=== PATIENT | male | born 1930 | race Caucasian/White ===

== ENCOUNTER 2016-12-21 17:32 | Inpatient (IN) ==
[2017-01-03] MEDS ORDERED: BISACODYL 10 MG SUPPOSITORY RECTALLY PRN (05:00)
[2017-01-03] MEDS ORDERED: TRAMADOL 50 MG TABLET PO PRN (05:00)
[2017-01-03] MEDS ORDERED: PROPAFENONE 150 MG TABLET PO SCH (06:00)
[2017-01-03] MEDS: GLUCOSAMINE/CHONDROITIN 500 MG/400 MG CAPSULE PO SCH (08:15)
[2017-01-03] MEDS: ASPIRIN *EC* 81 MG TABLET PO SCH ×2 (08:15→21:18)
[2017-01-03] MEDS: CLOPIDOGREL 75 MG TABLET PO SCH (08:15)
[2017-01-03] MEDS: TAMSULOSIN 0.4 MG CAPSULE PO SCH (08:16)
[2017-01-03] MEDS: SENNA + DOCUSATE TABLET PO SCH ×2 (08:16→21:17)
[2017-01-03] MEDS: DIGOXIN 250 MCG TABLET PO SCH (08:16)
[2017-01-03] MEDS: MAGNESIUM OXIDE 400 MG TABLET PO SCH (08:17)
[2017-01-03] MEDS: POLYETHYL GLYCOL 3350 17gm PACKET PO SCH (08:20)
[2017-01-03] MEDS: CARVEDILOL 3.125 MG TABLET PO SCH ×2 (08:20→18:11)
[2017-01-03] MEDS: OMEGA-3 ACID ESTERS 1 GM CAPSULE PO SCH (08:38)
[2017-01-03] MEDS: HYDROCODONE/APAP 7.5 MG/325 MG TABLET PO PRN (10:37)
[2017-01-03] MEDS: PANTOPRAZOLE 40 MG TABLET PO SCH ×2 (10:40→21:17)
[2017-01-03] MEDS ORDERED: Pharmacy Consult for Fall Risk XX PRN (11:20)
[2017-01-03] MEDS: PROPAFENONE 150 MG TABLET PO SCH ×2 (18:51→22:18)
[2017-01-03] MEDS ORDERED: ATORVASTATIN 40 MG TABLET PO SCH (22:00)
[2017-01-04] MEDS: HYDROCODONE/APAP 7.5 MG/325 MG TABLET PO PRN ×3 (01:53→12:13)
[2017-01-04] MEDS: PROPAFENONE 150 MG TABLET PO SCH (06:35)
[2017-01-04] MEDS: MAGNESIUM OXIDE 400 MG TABLET PO SCH (08:39)
[2017-01-04] MEDS: GLUCOSAMINE/CHONDROITIN 500 MG/400 MG CAPSULE PO SCH (08:39)
[2017-01-04] MEDS: PANTOPRAZOLE 40 MG TABLET PO SCH (08:39)
[2017-01-04] MEDS: CLOPIDOGREL 75 MG TABLET PO SCH (08:39)
[2017-01-04] MEDS: CARVEDILOL 3.125 MG TABLET PO SCH (08:39)
[2017-01-04] MEDS: ASPIRIN *EC* 81 MG TABLET PO SCH (08:39)
[2017-01-04] MEDS: TAMSULOSIN 0.4 MG CAPSULE PO SCH (08:39)
[2017-01-04] MEDS: SENNA + DOCUSATE TABLET PO SCH (08:40)
[2017-01-04] MEDS: DIGOXIN 250 MCG TABLET PO SCH (08:40)
[2017-01-04] MEDS: OMEGA-3 ACID ESTERS 1 GM CAPSULE PO SCH (08:40)
[2017-01-04] MEDS: POLYETHYL GLYCOL 3350 17gm PACKET PO SCH (09:48)
--- NOTE | 2017-01-04 13:53 | Discharge Summary ---
Discharge Plan - Med Rec/Dispo Referrals/Follow Up: Cr Meredith MD [Family Provider] - (01/15/17 at 8:00 am for Hosp. follow-up. [facility] [phone]) Prescriptions: New Hydrocodone/APAP 7.5/325 [[place] 7.5/325] 1 - 2 tab PO Q4H PRN #60 PRN Reason: Pain Tramadol [Ultram] 50 mg PO Q4H PRN #30 PRN Reason: pain Digoxin [Lanoxin] 250 mcg PO DAILY #30 Propafenone [Rythmol] 225 mg PO 0600,1400,2200 #30 Continue Aspirin 81 mg PO BID Norman 3/Dha/Epa/Other Om3/D3 1,000 mg PO DAILY Tamsulosin [Flomax] 0.4 mg PO DAILY Magnesium Oxide 1 tab PO DAILY #30 tab Pantoprazole Sodium [Protonix] 40 mg PO BID #0 tab Carvedilol 3.125 mg PO BIDWM Clopidogrel Bisulfate [Clopidogrel] 75 mg PO DAILY Osteo Bi-Flex Tablet 1 tab PO DAILY Atorvastatin [Lipitor] 1 tab PO HS #0 tab Glucosamine/D3/Boswellia Gavi [Osteo Bi-Flex Tablet] 1 tab PO DAILY #0 Norman-3 Fatty Acids/Fish Oil [Norman 3 1,000 mg Softgel] 1,000 mg PO DAILY #0 No Action Digoxin 125 mcg PO DAILY #0 Atorvastatin Calcium 40 mg PO HS Hydrocodone/APAP 5/325 [[place] 5/325] 2 tab PO Q4H PRN PRN Reason: Pain Pantoprazole Sodium [Protonix] 40 mg PO BID Aspirin [Aspir 81] 1 tab PO BID #30 tab Carvedilol [Coreg] 3.125 mg PO BIDWM #0 tab Clopidogrel Bisulfate [Plavix] 1 tab PO DAILY #0 tab Hydrocodone/Acetaminophen ([place] 5-325 Tablet) 2 tab PO Q4HPRN #0 tab Tamsulosin HCl [Flomax] 0.4 mg PO DAILY #0 cap RYTHMOL 150 mg PO Q8H #0 Magnesium Oxide 1 tab PO DAILY Tramadol [Ultram] 50 mg PO Q4H PRN PRN Reason: Pain Tramadol HCl 50 mg PO Q4H PRN #0 tab PRN Reason: PRN ORDERS - Disposition 01 Discharged Home, Self-Care
--- NOTE | 2017-01-04 14:14 | Progress Note ---
Subjective: Mr Pearce is seen this afternoon while resting in bed. He is alert, oriented and pleasant. Reports continues to have intermittent mild knee pain, however, overall is well-controlled with medications. No further episodes of palpitations or other concerning symptoms. Appetite is good. Bowels moving regularly. He is excited that he will be going home later today. Objective Vital signs: Temp Pulse Resp BP Pulse Ox 98.6 F 78 20 118/67 99 01/04/17 08:00 01/04/17 08:40 01/04/17 08:00 01/03/17 20:00 01/04/17 08:00 Weight: 71.5 kg - Constitutional Present: no acute distress - Routine HEENT Exam Eye: Present: EOMI, PERRL - Routine Cardiovascular Exam Present: RRR, S1, S2 - Routine Abdominal Exam Present: soft, normoactive bowel sounds - Routine Extremities Exam Present: full ROM Comments: Right knee, postoperative discomfort - Routine Back/Spine/Pelvis Exam Back/Spine: Present: full ROM - Routine Skin Exam Present: intact - Routine Neurological Exam Present: alert, oriented X3, CN II-XII intact - Routine Psychiatric Exam Present: normal affect, normal thought process, cooperative Results - Labs CBC & Chem 7: 12/31/16 14:27 12/31/16 14:27 Assessment and Plan (1) Status post right knee surgery Current visit: Yes Status: Chronic (2) Coronary artery disease Current visit: Yes Status: Chronic (3) Atrial fibrillation Current visit: Yes Status: Resolved (4) Aortic stenosis Current visit: Yes Status: Chronic (5) Hypercholesterolemia Current visit: Yes Status: Chronic (6) Hypertension Current visit: Yes Status: Chronic (7) BPH (benign prostatic hyperplasia) Current visit: Yes Status: Chronic (8) GERD (gastroesophageal reflux disease) Current visit: Yes Status: Chronic (9) Postoperative anemia Current visit: Yes Status: Acute DVT Prophylaxis: SCD's Assessment and Plan: 01/04/17 Bert is doing well today. He is tolerating therapy with minimal discomfort. He is pleased. He is planning for discharge later today. No further episodes of atrial fibrillation during his hospitalization. He will be discharged on increased dose of digoxin and Rythmol Encourage continued use of tramadol and Percocet as needed for pain control. She will utilize outpatient physical therapy for ongoing postoperative rehabilitation. Scheduled follow-up with orthopedic as well as primary care doctor, Dr. Meredith Sepsis Assessment - Evaluation Sepsis screening result: No Definite Risk - Focused Exam Vital Signs Temp Pulse Resp Pulse Ox 01/04/17 08:40 78 01/04/17 08:00 98.6 F 75 20 99 01/04/17 06:35 69 Hospital Course Summary Disclaimer: The visit summary below is not to be considered part of the above Progress Note.
--- NOTE | 2017-01-15 10:04 | Discharge Summary ---
Discharge Information Date of admission: 12/21/16 17:33 Attending Physician: Neftali De La Rosa MD Primary care physician: Cr Meredith MD Consults: 01/02/17 14:24 Case Management Consult [CONS] Routine Reason For Exam: discharge planning 01/02/17 15:17 Physician Consult [CONS] Routine Consulting Provider: Olman Herrera Reason For Exam: medical management Ordering Provider has Notified Study Hall Supervisor: No - Discharge Diagnosis (1) Status post right knee surgery Status: Chronic (2) Coronary artery disease Status: Chronic (3) Atrial fibrillation Status: Resolved (4) Aortic stenosis Status: Chronic (5) Hypercholesterolemia Status: Chronic (6) Hypertension Status: Chronic (7) BPH (benign prostatic hyperplasia) Status: Chronic (8) GERD (gastroesophageal reflux disease) Status: Chronic (9) Postoperative anemia Status: Acute - Laboratory Labs: 12/31/16 14:27 12/31/16 14:27 History of Present Illness HPI: Pt seen after admit as outpatient from PT across from hospital. He is an 86 yo very pleasant gentleman who has been unable to manage adl's at all since d/c 2 dys post knee replacement. He has been lying in bed without ability to get himself to shower or toilet. Unable to get food. Lying in his own waste. He rates pain as4-7 at rest, 10/10 with any attempt to move. Has had oral narcotics, which were unable to treat pain after d/c. He was at outpatient PT when therapist called my developer programmer analyst and pleaded for admission. We were able to justify obvious need for admission based on lack of pain control and concern over very brittle afib with risks of cva/complication. Hospital Course Hospital course: Mr. Pearce is a 86 year old male Patient admitted status post knee surgery. With myopathy and unstable medical situation. Atrial fibrillation was controlled by increasing her digoxin and Rythmol. Skull therapy and occupational therapy worked with the patient to increase strength, stamina and stability. Safety issues were discussed. Patient has significant improvement and FIM scores during admission. Discharged home with outpatient care follow-up. DVT Prophylaxis: SCD's Discharge Plan - Med Rec/Dispo Referrals/Follow Up: Betito Morris [Other] Cr Meredith MD [Family Provider] - (01/15/17 at 8:00 am for Hosp. follow-up. Via [facility] [phone]) Ann-Marie Instructions: Pain Management After Surgery (DC), Joint Replacement Surgery (DC) Prescriptions: New Hydrocodone/APAP 7.5/325 [[place] 7.5/325] 1 - 2 tab PO Q4H PRN #60 PRN Reason: Pain Tramadol [Ultram] 50 mg PO Q4H PRN #30 PRN Reason: pain Digoxin [Lanoxin] 250 mcg PO DAILY #30 Propafenone [Rythmol] 225 mg PO 0600,1400,2200 #30 Continue Aspirin 81 mg PO BID Springer 3/Dha/Epa/Other Om3/D3 1,000 mg PO DAILY Tamsulosin [Flomax] 0.4 mg PO DAILY Magnesium Oxide 1 tab PO DAILY #30 tab Pantoprazole Sodium [Protonix] 40 mg PO BID #0 tab Carvedilol 3.125 mg PO BIDWM Clopidogrel Bisulfate [Clopidogrel] 75 mg PO DAILY Osteo Bi-Flex Tablet 1 tab PO DAILY Atorvastatin [Lipitor] 1 tab PO HS #0 tab Glucosamine/D3/Boswellia Gavi [Osteo Bi-Flex Tablet] 1 tab PO DAILY #0 Springer-3 Fatty Acids/Fish Oil [Springer 3 1,000 mg Softgel] 1,000 mg PO DAILY #0 No Action Digoxin 125 mcg PO DAILY #0 Atorvastatin Calcium 40 mg PO HS Hydrocodone/APAP 5/325 [[place] 5/325] 2 tab PO Q4H PRN PRN Reason: Pain Pantoprazole Sodium [Protonix] 40 mg PO BID Aspirin [Aspir 81] 1 tab PO BID #30 tab Carvedilol [Coreg] 3.125 mg PO BIDWM #0 tab Clopidogrel Bisulfate [Plavix] 1 tab PO DAILY #0 tab Hydrocodone/Acetaminophen ([place] 5-325 Tablet) 2 tab PO Q4HPRN #0 tab Tamsulosin HCl [Flomax] 0.4 mg PO DAILY #0 cap RYTHMOL 150 mg PO Q8H #0 Magnesium Oxide 1 tab PO DAILY Tramadol [Ultram] 50 mg PO Q4H PRN PRN Reason: Pain Tramadol HCl 50 mg PO Q4H PRN #0 tab PRN Reason: PRN ORDERS - Disposition 01 Discharged Home, Self-Care
== END 2017-01-04 15:30 | disposition home or self-care (01) | DRG 560 ==
PROVIDERS: ADMIT Family Medicine; ATTEND Family Medicine

== ENCOUNTER 2017-06-16 11:31 | Inpatient (IN) ==
--- OUTSIDE RECORDS SUMMARY | 2017-06-16 13:59 | External Medical Summary | Referral Summary ---
:1930 Author Organization [facility] Address [address] [place] [address] [place] [address] Care Team Providers Name Role Phone Cr Meredith V Primary Care Physician Encounter VC Date(s): 03/23/15 - 03/23/15 [facility], [address] [place] [phone] Discharge Diagnosis: Mild aortic stenosis Discharge Diagnosis: Paroxysmal a-fib Discharge Disposition: 01-Home or Self Care Attending Physician: Alexis Rogers MD Admitting Physician: Alexis Rogers MD Referring Physician: Cr Meredith MD Vital Signs Most recent to oldest [Reference Range]: 1 Peripheral Pulse Rate [60-100 bpm] 64 bpm (03/23/15 2:19 PM) Blood Pressure [90-140/60-90 mmHg] 104/70 mmHg (03/23/15 2:19 PM) Problem List Condition Effective Dates Status Health Status Informant STEMI (ST elevation myocardial Active infarction)(Confirmed) Acute pain(Confirmed) Active Allergic rhinitis/hay Active fever(Confirmed) Allergies(Confirmed) Resolved Aortic stenosis(Confirmed) Active At risk for infection(Confirmed)1 Active At risk of pressure sore(Confirmed) Active Atrial fibrillation(Confirmed) Resolved Adenomatous polyp(Confirmed) Active Cellulitis(Confirmed) Active Eustachian tube 05/28/14 Active dysfunction(Confirmed) Essential hypertension(Confirmed) Active GERD(Confirmed) Resolved Hx of ST elevation myocardial Active infarction(Confirmed) High cholesterol(Confirmed) Active Hyperlipidemia(Confirmed) Active Hyperplastic polyp of Active intestine(Confirmed) Impacted cerumen(Confirmed) Active Ear infections(Confirmed) Active Knowledge deficit(Confirmed)2 Active Osteoarthritis(Confirmed)3 Resolved Paroxysmal atrial 1996 Active fibrillation(Confirmed)4 Polyp colon(Confirmed)5 Resolved Prostatism(Confirmed) Active Tissue perfusion Active alteration(Confirmed)6 1Problem added automatically by system based on initiation of At Risk for Infection in Nutrition Planof Meit8Ygbrapa added automatically by system based on initiation of Knowledge Deficit Plan of Vvlh6vwnpq, thumb VLP6sybunvlbkeac [id number], AND JONHPCMOFNSX9Aemltxm added automatically by system based on initiation of Tissue Perfusion Cerebral Plan of Care Allergies, Adverse Reactions, Alerts No Known Allergies Medications arginine 500 mg, Oral, Daily, 0 Refill(s) Start Date: 01/08/14 Status: Orderedaspirin 81 mg, Oral, Daily, 0 Refill(s) Start Date: 01/03/14 Status: OrderedCo-Q10 Oral, 0 Refill(s) Start Date: 01/08/14 Status: OrderedCoreg 3.125 mg oral tablet 3.125 mg 1 tabs, Oral, BIDWM, 0 Refill(s) Start Date: 06/22/15 Status: Ordereddigoxin 125 mcg (0.125 mg) oral tablet 125 mcg 1 tabs, Oral, Daily, 0 Refill(s) Start Date: 06/24/15 Status: OrderedFish Oil 1,000 mg, Oral, Daily, 0 Refill(s) Start Date: 01/08/14 Status: OrderedLipitor 40 mg oral tablet 40 mg 1 tabs, Oral, Daily, 0 Refill(s) Start Date: 06/22/15 Status: Orderedmagnesium oxide 400 mg, Oral, Daily, 0 Refill(s) Start Date: 01/08/14 Status: Orderednitroglycerin 0.4 mg sublingual tablet 0.4 mg 1 tabs, SubLingual, q5min, Angina/Chest Pain, 0 Refill(s) Start Date: 06/22/15 Status: OrderedOsteo Bi-Flex one daily, 0 Refill(s) Start Date: 01/08/14 Status: OrderedPlavix 75 mg oral tablet 75 mg 1 tabs, Oral, Daily, 0 Refill(s) Start Date: 06/22/15 Status: OrderedProtonix 40 mg oral delayed release tablet 40 mg 1 tabs, Oral, BID, 0 Refill(s) Start Date: 06/22/15 Status: OrderedRythmol 150 mg oral tablet See Instructions, TAKE 1 TABLET EVERY 8 HOURS, # 270 tabs, 3 Refill(s), eRx: [facility], TAKE 1 TABLET EVERY 8 HOURS Start Date: 03/30/15 Status: Orderedtamsulosin 0.4 mg oral capsule 1 caps, Oral, Daily, # 90 caps, 3 Refill(s), Pharmacy: [facility], 1 caps Oral Daily Start Date: 11/09/14 Status: Ordered Results No data available for this section Immunizations Vaccine Date Refusal Reason influenza virus vaccine, inactivated1 07/12/14 influenza virus vaccine, live 06/19/13 influenza virus vaccine, live 06/25/12 pneumococcal 13-valent conjugate vaccine 07/05/15 pneumococcal 23-polyvalent vaccine 06/01/05 tetanus-diphth toxoids (Td) adult/adol 02/02/09 1Result Comment: [07/12/2014] SEE SCANNED NOTE Procedures Procedure Date Related Diagnosis Body Site Catheterization Left Heart with Coronary 06/18/15 Angiography (Left)1 Catheterization Heart Coronary Intervention2 06/17/15 Catheterization Left Heart with Coronary 06/17/15 Angiography3 S/P colonoscopy4 2005 Bilateral ptosis surgery5 2004 S/P colonoscopy6 2004 Colonoscopy7 2003 Bilateral inguinal hernia repair8 1989 Circumcision Eye lid surgeries H/O esophagogastroduodenoscopy Paroxysmal a-fib Right knee surgery x29 Tonsillectomy Vasectomy 1auto-populated from documented surgical yshj7moqu-yrmwpqwep from documented surgical pyhy2atrd-koncpmict from documented surgical bdyv1pvadrxgacvkk xstwk6OSZL KUUV7evxwodawear [id number] [id number] KNEE SURGERY Social History Social History Type Response Smoking Status Former smoker; Started at age: 30; Stopped at age: 54 Assessment and Plan Extracted from: Title: Office Visit Note Author: Alexis Rogers MD Date: 03/24/15 Assessment/Plan 1.Paroxysmal a-fib 2.Mild aortic stenosis Discussion: From the standpoint of his mild aortic stenosis and paroxysmal atrial fibrillation, he appears to be getting along very well. We left him on the same medications. We advised him to call us if he has any symptoms of chest pain or shortness of breath or syncope etc. We also discussed cardiac risk for joint replacement surgery. We advised him that with any operation it's important for the patient and the surgeon to reconcile if the operation is necessary and if it is likely to be successful and if there are likely to be complications and what the long-term outlook of the operation may be. From the standpoint of cardiac risk, joint replacement surgery is usually a medium risk operation and therefore, the patient is clinically stable, it is usually reasonable to proceed. I reminded the patient and his that operative intervention is sometimes provocative of atrial fibrillation. He is to see me in a year and to call if he has any difficulty.
--- OUTSIDE RECORDS SUMMARY | 2017-06-16 13:59 | External Medical Summary | Referral Summary ---
:1930 Author [facility] Address [address] [place] [address] [place] [address] Care Team Providers Name Role Phone Cr Meredith V Primary Care Physician Encounter VC Date(s): 06/25/16 - 06/25/16 [facility] [place] [phone] Discharge Disposition: 01-Home or Self Care Attending Physician: Cr Meredith MD Admitting Physician: Cr Meredith MD Vital Signs No data available for this section Problem List Condition Effective Dates Status Health Status Informant STEMI (ST elevation myocardial Active infarction)(Confirmed) Acute pain(Confirmed) Active Allergic rhinitis/hay Active fever(Confirmed) Allergies(Confirmed) Resolved Aortic stenosis(Confirmed) Active Mild CAD(Confirmed) Active At risk for infection(Confirmed)1 Active At [...] At Risk for Infection in Nutrition Planof Xcqz2Tnnmetu added automatically by system based on initiation of Knowledge Deficit Plan of Peov4rdfmo, thumb XDX1udnqbxwtopzt [id number], AND LCODCSWZNTRP3Jrueduf added automatically by system based on initiation [...] HOURS, # 270 tabs, 3 Refill(s), eRx: [facility], TAKE 1 TABLET EVERY 8 HOURS Start Date: 03/30/15 Status: Orderedtamsulosin 0.4 mg oral capsule See Instructions, TAKE 1 CAPSULE EVERY DAY, # 90 caps, 3 Refill(s), eRx: [facility], TAKE 1 CAPSULE EVERY DAY Start Date: 10/25/15 Status: Ordered Results No data available for this section Immunizations Vaccine Date Refusal Reason influenza virus vaccine, inactivated 06/25/16 influenza virus vaccine, inactivated1 07/12/14 influenza virus [...] x29 Tonsillectomy Vasectomy 1auto-populated from documented surgical tuoj5ktfu-ofignglfo from documented surgical jlwm8amzz-spvcrocxc from documented surgical yuiz9rdwnjftytuma lsdwp2BOKN BFIA7lbjkvkaxefz ggcsf4hfcos3CZLGSNMBEY PUIBNFWJ5EDCEB KNEE SURGERY Social History Social History Type Response Smoking Status Former smoker; Started at age: 30; Stopped at age: 54 Assessment and Plan No data available for this section
--- OUTSIDE RECORDS SUMMARY | 2017-06-16 13:59 | External Medical Summary | Referral Summary ---
:1930 Author Organization [facility] Address [address] [place] [address] [place] [address] Care Team Providers Name Role Phone Cr Meredith V Primary Care Physician Encounter VC Date(s): 06/07/15 - 06/07/15 [facility] [place] [phone] [place] Discharge Diagnosis: Primary osteoarthritis of left knee Discharge Diagnosis: Paroxysmal atrial fibrillation Discharge Diagnosis: H/O gastroesophageal reflux (GERD) Discharge Diagnosis: Encounter for preprocedural cardiovascular examination Discharge Disposition: 01-Home or Self Care Attending Physician: Cr Meredith MD Admitting Physician: Cr Meredith MD Vital Signs Most recent to oldest [Reference Range]: 1 Temperature Tympanic [36.6-38.1 degC] 36.1 degC *LOW* (06/07/15 7:54 AM) Peripheral Pulse Rate [60-100 bpm] 60 bpm (06/07/15 7:54 AM) Blood Pressure [90-140/60-90 mmHg] 130/70 mmHg (06/07/15 7:54 AM) Problem List Condition Effective Dates Status Health Status Informant Allergic rhinitis/hay Active fever(Confirmed) Allergies(Confirmed) Resolved Atrial fibrillation(Confirmed) Resolved Eustachian tube 05/28/14 Active dysfunction(Confirmed) Adenomatous polyp(Confirmed) Active GERD(Confirmed) Resolved High cholesterol(Confirmed) Active Hyperlipidemia(Confirmed) Active Hyperplastic polyp of Active intestine(Confirmed) Impacted cerumen(Confirmed) Active Ear infections(Confirmed) Active Osteoarthritis(Confirmed)1 Resolved Paroxysmal atrial 1996 Active fibrillation(Confirmed)2 Polyp colon(Confirmed)3 Resolved Prostatism(Confirmed) Active 1knees, thumb VZR2zntgigkipxmb [id number], AND HYPERPLASTIC Allergies, Adverse Reactions, Alerts No Known Allergies Medications arginine Oral, 0 Refill(s) Start Date: 01/08/14 Status: Orderedaspirin 81 mg, Oral, Daily, 0 Refill(s) Start Date: 01/03/14 Status: OrderedCo-Q10 Oral, 0 Refill(s) Start Date: 01/08/14 Status: Ordereddigoxin 125 mcg (0.125 mg) oral tablet 1 tabs, Oral, Daily, # 90 tabs, 3 Refill(s), Pharmacy: [facility], 1 tabs Oral Daily Start Date: 11/24/14 Status: OrderedFish Oil Oral, 0 Refill(s) Start Date: 01/08/14 Status: Orderedlovastatin 40 mg oral tablet 1 1/2 tabs, Oral, Daily, # 135 tabs, 3 Refill(s), Pharmacy: [facility], 1 1/2 tabs Oral Daily Start Date: 11/24/14 Status: Orderedmagnesium oxide Oral, 0 Refill(s) Start Date: 01/08/14 Status: Orderedomeprazole 20 mg oral delayed release capsule 1 caps, Oral, Daily, # 90 caps, 0 Refill(s), Pharmacy: [id number], 1 caps Oral Daily Start Date: 11/11/14 Status: OrderedOsteo Bi-Flex 0 Refill(s) Start Date: 01/08/14 Status: OrderedRythmol 150 mg oral tablet See Instructions, TAKE 1 TABLET EVERY 8 HOURS, # 270 tabs, 3 Refill(s), eRx: [facility], TAKE 1 TABLET EVERY 8 HOURS Start Date: 03/30/15 Status: Orderedtamsulosin 0.4 mg oral capsule 1 caps, Oral, Daily, # 90 caps, 3 Refill(s), Pharmacy: [facility], 1 caps Oral Daily Start Date: 11/09/14 Status: Ordered Results Hematology Most recent to oldest [Reference Range]: 1 WBC [4.8-10.8 10*3/uL] 4.6 10*3/uL *LOW* (06/07/15 8:50 AM) RBC [4.60-6.20] 4.74 (06/07/15 8:50 AM) Hgb [14.0-18.0 gm/dL] 13.9 gm/dL *LOW* (06/07/15 8:50 AM) Hct [42.0-52.0 %] 42.3 % (06/07/15 8:50 AM) MCV [82.0-99.0 fL] 89.2 fL (06/07/15 8:50 AM) MCH [27.0-32.0 pg] 29.3 pg (06/07/15 8:50 AM) MCHC [32.0-36.0 gm/dL] 32.9 gm/dL (06/07/15 8:50 AM) RDW [11.5-14.5 %] 13.9 % (06/07/15 8:50 AM) Platelet [150-400 10*3/uL] 259 10*3/uL (06/07/15 8:50 AM) MPV [8.8-14.8 fL] 10.0 fL (06/07/15 8:50 AM) Immature Granulocytes [0.0-1.0 %] 0.2 % (06/07/15 8:50 AM) Neutrophils [51-75 %] 66 % (06/07/15 8:50 AM) Lymphocytes [20-46 %] 21 % (06/07/15 8:50 AM) Monocytes [4-11 %] 9 % (06/07/15 8:50 AM) Eosinophils [0-4 %] 3 % (06/07/15 8:50 AM) Basophils [0-2 %] 0 % (06/07/15 8:50 AM) Neutro Absolute [1.90-7.00 10*3] 3.02 10*3 (06/07/15 8:50 AM) Lymph Absolute [0.80-3.30 10*3] 0.97 10*3 (06/07/15 8:50 AM) Bracken Absolute [0.30-1.00 10*3] 0.43 10*3 (06/07/15 8:50 AM) Eos Absolute [0.00-0.50 10*3] 0.13 10*3 (06/07/15 8:50 AM) Baso Absolute [0.00-0.20 10*3] 0.02 10*3 (06/07/15 8:50 AM) Coagulation Most recent to oldest [Reference Range]: 1 PT Venous (06/07/15 8:50 AM) INR [0.8-1.2] 0.9 1 (06/07/15 8:50 AM) 1Result Comment: Normal (no anticoagulant): 0.8 - 1.2 Units Routine Therapeutic Range: 2.0 - 3.0 Units High Risk Therapeutic Range: 2.5 - 3.5 UnitsChemistry Most recent to oldest [Reference Range]: 1 Sodium Lvl [135-144 mEq/L] 140 mEq/L (06/07/15 8:50 AM) Potassium Lvl [3.5-5.2 mEq/L] 4.2 mEq/L (06/07/15 8:50 AM) Chloride [99-111 mEq/L] 107 mEq/L (06/07/15 8:50 AM) CO2 [23-31 mEq/L] 28 mEq/L (06/07/15 8:50 AM) AGAP [3-20] 5 (06/07/15 8:50 AM) BUN [8-26 mg/dL] 21 mg/dL (06/07/15 8:50 AM) Glucose Lvl [70-99 mg/dL] 101 mg/dL *HI* (06/07/15 8:50 AM) Creatinine Lvl [0.72-1.25 mg/dL] 1.04 mg/dL (06/07/15 8:50 AM) eGFR [>60 mL/min] >60 mL/min 1 (06/07/15 8:50 AM) Calcium Lvl [8.9-10.5 mg/dL] 9.1 mg/dL (06/07/15 8:50 AM) Albumin Lvl [3.4-4.8 gm/dL] 3.6 gm/dL (06/07/15 8:50 AM) Total Protein [6.2-8.1 gm/dL] 6.2 gm/dL (06/07/15 8:50 AM) Globulin [1.8-4.0 gm/dL] 2.6 gm/dL (06/07/15 8:50 AM) ALT [0-55 U/L] 19 U/L (06/07/15 8:50 AM) AST [5-34 U/L] 26 U/L (06/07/15 8:50 AM) Alk Phos [40-150 U/L] 54 U/L (06/07/15 8:50 AM) Bili Total [0.2-1.2 mg/dL] 0.6 mg/dL (06/07/15 8:50 AM) 1Result Comment: Multiply eGFR results by 1.21 for race. Immunizations Vaccine Date Refusal Reason influenza virus vaccine, inactivated1 07/12/14 influenza virus vaccine, live 06/19/13 influenza virus vaccine, live 06/25/12 pneumococcal 23-polyvalent vaccine 06/01/05 tetanus-diphth toxoids (Td) adult/adol 02/02/09 1Result Comment: [07/12/2014] SEE SCANNED NOTE Procedures Procedure Date Related Diagnosis Body Site S/P colonoscopy1 2005 Bilateral ptosis surgery2 2004 S/P colonoscopy3 2004 Colonoscopy4 2003 Bilateral inguinal hernia repair5 1989 Circumcision Eye lid surgeries H/O esophagogastroduodenoscopy Paroxysmal a-fib Right knee surgery x26 Tonsillectomy Vasectomy 1hyperplastic [id number] HCWP4hlwljevvtdu [id number] [id number] KNEE SURGERY Social History Social History Type Response Smoking Status Former smoker; Started at age: 30; Stopped at age: 54 Assessment and Plan Extracted from: Title: Preoperative assessment Author: Cr Meredith MD Date: 06/07/15 Assessment/Plan Encounter for preprocedural cardiovascular examination H/O gastroesophageal reflux (GERD) Paroxysmal atrial fibrillation Pre-op exam Primary osteoarthritis of left knee Overall he seems to be stable. Will obtain labs and EKG and chest x-ray today. Recommendations as described above -these were discussed with him and his . Copy of the dictation to be sent to Dr. Lucas and to Dr. Rogers.
--- OUTSIDE RECORDS SUMMARY | 2017-06-16 13:59 | External Medical Summary | Referral Summary ---
:1930 Author Organization [facility] [place], [facility] Address [address] [place] [address] DAV[place] Kitchen [address] Care Team Providers Name Role Phone Cr Meredith V Primary Care Physician Encounter VC Date(s): 03/23/15 - 03/23/15 [facility] [place] [address] [place] [address] [place] [phone] [place] Discharge Diagnosis: Mild [...] Polyp colon(Confirmed)3 Resolved Prostatism(Confirmed) Active 1knees, thumb CDL2luqvzjbndwno [id number], AND HYPERPLASTIC Allergies, Adverse Reactions, Alerts No Known Allergies Medications arginine Oral, 0 Refill(s) Start Date: 01/08/14 Status: Orderedaspirin 81 mg, Oral, Daily, 0 Refill(s) Start Date: 01/03/14 Status: OrderedCo-Q10 Oral, 0 Refill(s) Start Date: 01/08/14 Status: Ordereddigoxin 125 mcg (0.125 mg) oral tablet 1 tabs, Oral, Daily, # 90 tabs, 3 Refill(s), Pharmacy: [facility], 1 tabs Oral Daily Start Date: 11/24/14 Status: OrderedFish Oil Oral, 0 Refill(s) Start Date: 01/08/14 Status: Orderedlovastatin 40 mg oral tablet 1 1/2 tabs, Oral, Daily, # 135 tabs, 3 Refill(s), Pharmacy: [facility], 1 1/2 tabs Oral Daily Start Date: 11/24/14 Status: Orderedmagnesium oxide Oral, 0 Refill(s) Start Date: 01/08/14 Status: Orderedomeprazole 20 mg oral delayed release capsule 1 caps, Oral, Daily, # 90 caps, 0 Refill(s), Pharmacy: [facility], 1 caps Oral Daily Start Date: 11/11/14 Status: OrderedOsteo Bi-Flex 0 Refill(s) Start Date: 01/08/14 Status: OrderedRythmol 150 mg oral tablet See Instructions, TAKE 1 TABLET EVERY 8 HOURS, # 270 tabs, 3 Refill(s), eRx: [facility], TAKE 1 TABLET EVERY 8 HOURS Start Date: 03/30/15 Status: Orderedtamsulosin 0.4 mg oral capsule 1 caps, Oral, Daily, # 90 caps, 3 Refill(s), Pharmacy: [facility], 1 caps Oral Daily Start Date: [...] Right knee surgery x26 Tonsillectomy Vasectomy 1hyperplastic idjvd6ZXPS IUJG3aywtodkivdz fclix9qppwx7WPEWPONDKH ZFUJNAQV0RSNEH KNEE SURGERY Social History Social History Type [...]
--- OUTSIDE RECORDS SUMMARY | 2017-06-16 13:59 | External Medical Summary | Referral Summary ---
:1930 Author Organization [facility] Address [address] [place] [address] DAV[place] Kitchen [address] Care Team Providers Name Role Phone Cr Meredith V Primary Care Physician Encounter VC Date(s): 03/23/15 - 03/23/15 [facility] [place] [address] [place] [address] [place] [phone] [place] Discharge Diagnosis: Mild [...] Polyp colon(Confirmed)3 Resolved Prostatism(Confirmed) Active 1knees, thumb KOA0vhgwuiwfvuhv [id number], AND HYPERPLASTIC Allergies, Adverse Reactions, Alerts No Known Allergies Medications arginine Oral, 0 Refill(s) Start Date: 01/08/14 Status: Orderedaspirin 81 mg, Oral, Daily, 0 Refill(s) Start Date: 01/03/14 Status: OrderedCo-Q10 Oral, 0 Refill(s) Start Date: 01/08/14 Status: Ordereddigoxin 125 mcg (0.125 mg) oral tablet 1 tabs, Oral, Daily, # 90 tabs, 3 Refill(s), Pharmacy: [facility], 1 tabs Oral Daily Start Date: 11/24/14 Status: OrderedFish Oil Oral, 0 Refill(s) Start Date: 01/08/14 Status: Orderedlovastatin 40 mg oral tablet 1 1/2 tabs, Oral, Daily, # 135 tabs, 3 Refill(s), Pharmacy: [facility], 1 1/2 tabs Oral Daily Start Date: 11/24/14 Status: Orderedmagnesium oxide Oral, 0 Refill(s) Start Date: 01/08/14 Status: Orderedomeprazole 20 mg oral delayed release capsule 1 caps, Oral, Daily, # 90 caps, 0 Refill(s), Pharmacy: [facility], 1 caps Oral Daily Start Date: 11/11/14 Status: OrderedOsteo Bi-Flex 0 Refill(s) Start Date: 01/08/14 Status: OrderedRythmol 150 mg oral tablet See Instructions, TAKE 1 TABLET EVERY 8 HOURS, # 270 tabs, 3 Refill(s), eRx: [facility], TAKE 1 TABLET EVERY 8 HOURS Start Date: 03/30/15 Status: Orderedtamsulosin 0.4 mg oral capsule 1 caps, Oral, Daily, # 90 caps, 3 Refill(s), Pharmacy: [facility], 1 caps Oral Daily Start Date: [...] Right knee surgery x26 Tonsillectomy Vasectomy 1hyperplastic ruulc2PWAG OEZN6ftnrftnrtuc rxzhl1ipdhp5GNNHAKTYAE THYTOIOP6BFTTU KNEE SURGERY Social History Social History Type [...]
--- OUTSIDE RECORDS SUMMARY | 2017-06-16 13:59 | External Medical Summary | Referral Summary ---
:1930 Author Organization [facility] Address [address] [place] [address] DAV[place] Kitchen [address] Care Team Providers Name Role Phone Cr Meredith V Primary Care Physician Encounter VC Date(s): 03/20/16 - 03/20/16 [facility] [place] [place] [address] Discharge Diagnosis: Essential hypertension Discharge Diagnosis: High cholesterol Discharge Diagnosis: Mild CAD Discharge Diagnosis: GERD (gastroesophageal reflux disease) Discharge Disposition: 01-Home or Self Care Attending Physician: Cr Meredith MD Admitting Physician: Cr Meredith MD Vital Signs Most recent to oldest [Reference Range]: 1 Temperature Tympanic [36.6-38.1 degC] 36.5 degC *LOW* (03/20/16 2:32 PM) Peripheral Pulse Rate [60-100 bpm] 72 bpm (03/20/16 2:32 PM) Blood Pressure [90-140/60-90 mmHg] 117/65 mmHg (03/20/16 2:32 PM) Problem List Condition Effective Dates Status [...] At Risk for Infection in Nutrition Planof Yyho8Hilfvrm added automatically by system based on initiation of Knowledge Deficit Plan of Vpav4qogec, thumb ORA2rouqnuearpbr f09QPDIHNAYZDL, AND RKXUZQACMYZG9Ubyujvp added automatically by system based on initiation [...] HOURS, # 270 tabs, 3 Refill(s), eRx: [facility], TAKE 1 TABLET EVERY 8 HOURS Start Date: 03/30/15 Status: Orderedtamsulosin 0.4 mg oral capsule See Instructions, TAKE 1 CAPSULE EVERY DAY, # 90 caps, 3 Refill(s), eRx: [facility], TAKE 1 CAPSULE EVERY [...] x29 Tonsillectomy Vasectomy 1auto-populated from documented surgical onbm1qink-qlqlxzjhe from documented surgical hott6gaig-znpscszer from documented surgical nkgk4ikyizvlhxamz ekdcc9FEVJ ASEE8gtnjsrrbfad wjzcc8qujuk7MLTUTJWHAG SSNOJLTL6ZCNEJ KNEE SURGERY Social History Social History Type Response Smoking Status Former smoker; Started at age: 30; Stopped at age: 54 Assessment and Plan Extracted from: Title: 6 Month CDM Author: Cr Meredith MD Date: 03/20/16 Impression and Plan Diagnosis Mild CAD (JZS79-EH I25.10, Discharge, Medical). High cholesterol (NLE68-RG E78.0, Discharge, Medical). GERD (gastroesophageal reflux disease) (FNG71-LF K21.9, Discharge, Medical). Essential hypertension (SUH64-AP I10, Discharge, Medical). Orders Orders (Selected) Outpatient Orders Future (On Hold) Fasting Lipid Profile: .
--- OUTSIDE RECORDS SUMMARY | 2017-06-16 13:59 | External Medical Summary | Referral Summary ---
:1930 Author Organization [facility], Otolaryngology Address [address] [address] Care Team Providers Name Role Phone Cr Meredith V Primary Care Physician Encounter [facility] [id number] Date(s): 05/17/15 - 05/17/15 [facility], [facility], Otolaryngology [address] [address] [place] Discharge Diagnosis: Orthostatic hypotension Discharge Diagnosis: Sensorineural hearing loss, bilateral Discharge Disposition: 01-Home or Self Care Attending Physician: Ilya Birch MD Admitting Physician: Ilya Birch MD Vital Signs No data available for [...] At Risk for Infection in Nutrition Planof Xtek2Ujlygxo added automatically by system based on initiation of Knowledge Deficit Plan of Bqlz4fithu, thumb PFP5esalnhqldzeo [id number], AND PQHOAOLPNMKP9Hcxrfcy added automatically by system based on initiation [...] HOURS, # 270 tabs, 3 Refill(s), eRx: [facility], TAKE 1 TABLET EVERY [...] x29 Tonsillectomy Vasectomy 1auto-populated from documented surgical kikk9yiea-cqwdlkwjg from documented surgical jvie6fotr-sjzjxbkro from documented surgical ixmi0rypfgjwxtwwf gnjwa6EYLI VRQF0svvxajeybpj ohfgy1npcyx9MNKVJVJQCZ CMHRRPUP9DHQTJ KNEE SURGERY Social History Social History Type Response Smoking Status Former smoker; Started at age: 30; Stopped at age: 54 Assessment and Plan Extracted from: Title: Ambulatory Patient Education Author: Ilya Birch MD Date: 05/17/15 Hearing Loss A hearing loss is sometimes called deafness. Hearing loss may be partial or total. CAUSES Hearing loss may be caused by: Wax in the ear canal. Infection of the ear canal. Infection of the middle ear. Trauma to the ear or surrounding area. Fluid in the middle ear. A hole in the eardrum (perforated eardrum). Exposure to loud sounds or music. Problems with the hearing nerve. Certain medications. Hearing loss without wax, infection, or a history of injury may mean that the nerve is involved. Hearing loss with severe dizziness, nausea and vomiting or ringing in the ear may suggest a hearing nerve irritation or problems in the middle or inner ear. If hearing loss is untreated, there is a greater likelihood for residual or permanent hearing loss. DIAGNOSIS A hearing test (audiometry) assesses hearing loss. The audiometry test needs to be performed by a hearing screen coordinator (pyrometallurgical engineer). TREATMENT Treatment for recent onset of hearing loss may include: Ear wax removal. Medications that kill germs (antibiotics). Cortisone medications. Prompt follow up with the appropriate specialist. Return of hearing depends on the cause of your hearing loss, so proper medical follow-up is important. Some hearing loss may not be reversible, and a caregiver should discuss care and treatment options with you. SEEK MEDICAL CARE IF: You have a severe headache, dizziness, or changes in vision. You have new or increased weakness. You develop repeated vomiting or other serious medical problems. You have a fever. Document Released: 07/22/2006 Document Revised: 10/13/2012 Document Reviewed: 11/16/2010 [facility] Patient Information 2015 [employer]. This information is not intended to replace advice given to you by your health care provider. Make sure you discuss any questions you have with your health care provider. Hypotension As your heart beats, it forces blood through your body. This force is called blood pressure. If you have hypotension, you have low blood pressure. When your blood pressure is too low, you may not get en ough blood to your brain. You may feel weak, feel lightheaded, have a fast heartbeat, or even pass out (faint). HOME CARE Drink enough fluids to keep your pee (urine) clear or pale yellow. Take all medicines as told by your doctor. Get up slowly after sitting or lying down. Wear support stockings as told by your doctor. Maintain a healthy diet by including foods such as fruits, vegetables, nuts, whole grains, and lean meats. GET HELP IF: You are throwing up (vomiting) or have watery poop (diarrhea). You have a fever for more than 23 days. You feel more thirsty than usual. You feel weak and tired. GET HELP RIGHT AWAY IF: You pass out (faint). You have chest pain or a fast or irregular heartbeat. You lose feeling in part of your body. You cannot move your arms or legs. You have trouble speaking. You get sweaty or feel lightheaded. MAKE SURE YOU: Understand these instructions. Will watch your condition. Will get help right away if you are not doing well or get worse. Document Released: 10/16/2010 Document Revised: 03/24/2014 Document Reviewed: 01/22/2014 [employer] Patient Information 2015 [employer]. This information is not intended to replace advice given to you by your health care provider. Make sure you discuss any questions you have with your health care provider. No follow up information was provided.
--- OUTSIDE RECORDS SUMMARY | 2017-06-16 14:00 | External Medical Summary | Referral Summary ---
:1930 Author Organization [facility] Address [address] [place] [address] [place] Kitchen [address] Care Team Providers Name Role Phone Cr Meredith V Primary Care Physician Encounter VC Date(s): 07/05/15 - 07/05/15 [facility] [place] [place] [address] [place] Discharge Diagnosis: Hx of ST elevation myocardial infarction Discharge Diagnosis: Paroxysmal atrial fibrillation Discharge Diagnosis: Anemia Discharge Disposition: 01-Home or Self Care Attending Physician: Cr Meredith MD Admitting Physician: Cr Meredith MD Vital Signs Most recent to oldest [Reference Range]: 1 Temperature Tympanic [36.6-38.1 degC] 36.2 degC *LOW* (07/05/15 1:45 PM) Peripheral Pulse Rate [60-100 bpm] 68 bpm (07/05/15 1:45 PM) Blood Pressure [90-140/60-90 mmHg] 97/62 mmHg (07/05/15 1:45 PM) Problem List Condition Effective Dates Status Health Status Informant STEMI (ST elevation myocardial Active infarction)(Confirmed) Acute pain(Confirmed) Active Allergic rhinitis/hay Active fever(Confirmed) Allergies(Confirmed) Resolved Aortic stenosis(Confirmed) Active At risk for infection(Confirmed)1 Active At risk of pressure sore(Confirmed) Active Atrial fibrillation(Confirmed) Resolved Cellulitis(Confirmed) Active Eustachian tube 05/28/14 Active dysfunction(Confirmed) Essential hypertension(Confirmed) Active Adenomatous polyp(Confirmed) Active GERD(Confirmed) Resolved Hx of ST elevation myocardial Active infarction(Confirmed) High cholesterol(Confirmed) Active Hyperlipidemia(Confirmed) Active Hyperplastic polyp of Active intestine(Confirmed) Impacted cerumen(Confirmed) Active Ear infections(Confirmed) Active Knowledge deficit(Confirmed)2 Active Osteoarthritis(Confirmed)3 Resolved Paroxysmal atrial 1996 Active fibrillation(Confirmed)4 Polyp colon(Confirmed)5 Resolved Prostatism(Confirmed) Active Tissue perfusion Active alteration(Confirmed)6 1Problem added automatically by system based on initiation of At Risk for Infection in Nutrition Planof Zdbg7Ldudlcl added automatically by system based on initiation of Knowledge Deficit Plan of Sfep6uleal, thumb CCI7lpypvufzpqdx t49XLORTOOMORD, AND QTLSYXNJXSLA5Hxlridp added automatically by system based on initiation [...] Daily, 0 Refill(s) Start Date: 01/08/14 Status: OrderedKeflex 500 mg oral capsule 500 mg 1 caps, Oral, q8hr, for 10 days Start: 06/22/15 PM, 0 Refill(s) Start Date: 06/22/15 Status: OrderedLipitor 40 mg oral tablet 40 [...] HOURS, # 270 tabs, 3 Refill(s), eRx: [facility], TAKE 1 TABLET EVERY 8 HOURS Start Date: 03/30/15 Status: Orderedtamsulosin 0.4 mg oral capsule 1 caps, Oral, Daily, # 90 caps, 3 Refill(s), [facility], 1 caps Oral Daily Start Date: 11/09/14 Status: Ordered Results Hematology Most recent to oldest [Reference Range]: 1 WBC [4.8-10.8 10*3/uL] 9.0 10*3/uL (07/05/15 3:15 PM) RBC [4.60-6.20] 4.58 *LOW* (07/05/15 3:15 PM) Hgb [14.0-18.0 gm/dL] 13.2 gm/dL *LOW* (07/05/15 3:15 PM) Hct [42.0-52.0 %] 40.4 % *LOW* (07/05/15 3:15 PM) MCV [82.0-99.0 fL] 88.2 fL (07/05/15 3:15 PM) MCH [27.0-32.0 pg] 28.8 pg (07/05/15 3:15 PM) MCHC [32.0-36.0 gm/dL] 32.7 gm/dL (07/05/15 3:15 PM) RDW [11.5-14.5 %] 13.4 % (07/05/15 3:15 PM) Platelet [150-400 10*3/uL] 445 10*3/uL *HI* (07/05/15 3:15 PM) MPV [8.8-14.8 fL] 9.6 fL (07/05/15 3:15 PM) Immature Granulocytes [0.0-1.0 %] 0.6 % (07/05/15 3:15 PM) Neutrophils [51-75 %] 80 % *HI* (07/05/15 3:15 PM) Lymphocytes [20-46 %] 11 % *LOW* (07/05/15 3:15 PM) Monocytes [4-11 %] 6 % (07/05/15 3:15 PM) Eosinophils [0-4 %] 2 % (07/05/15 3:15 PM) Basophils [0-2 %] 0 % (07/05/15 3:15 PM) Neutro Absolute [1.90-7.00 10*3] 7.22 10*3 *HI* (07/05/15 3:15 PM) Lymph Absolute [0.80-3.30 10*3] 0.98 10*3 (07/05/15 3:15 PM) Dixie Absolute [0.30-1.00 10*3] 0.55 10*3 (07/05/15 3:15 PM) Eos Absolute [0.00-0.50 10*3] 0.19 10*3 (07/05/15 3:15 PM) Baso Absolute [0.00-0.20 10*3] 0.03 10*3 (07/05/15 3:15 PM) Chemistry Most recent to oldest [Reference Range]: 1 Sodium Lvl [135-144 mEq/L] 136 mEq/L (07/05/15 3:15 PM) Potassium Lvl [3.5-5.2 mEq/L] 4.7 mEq/L (07/05/15 3:15 PM) Chloride [99-111 mEq/L] 103 mEq/L (07/05/15 3:15 PM) CO2 [23-31 mEq/L] 27 mEq/L (07/05/15 3:15 PM) AGAP [3-20] 6 (07/05/15 3:15 PM) BUN [8-26 mg/dL] 26 mg/dL (07/05/15 3:15 PM) Glucose Lvl [70-99 mg/dL] 112 mg/dL *HI* (07/05/15 3:15 PM) Creatinine Lvl [0.72-1.25 mg/dL] 1.18 mg/dL (07/05/15 3:15 PM) eGFR [>60 mL/min] 59 mL/min 1 *ABN* (07/05/15 3:15 PM) Calcium Lvl [8.9-10.5 mg/dL] 9.3 mg/dL (07/05/15 3:15 PM) 1Result Comment: Multiply eGFR results by 1.21 [...] Bilateral ptosis surgery5 2004 S/P colonoscopy6 2004 Colonoscopy2003 Bilateral inguinal hernia repair8 1989 Circumcision Eye lid surgeries H/O esophagogastroduodenoscopy Paroxysmal a-fib Right knee surgery x29 Tonsillectomy Vasectomy 1auto-populated from documented surgical lytj6nlyq-ltktteflg from documented surgical iehv2gcrw-cypgrtzob from documented surgical olnr4whemjdfkonqm hfhno2FUXB ARFM7nnsmcrpuitf yvpzp2luxov2PRCDNWRZQV HYLCGVDL6GKBXO KNEE SURGERY Social History Social History Type Response Smoking Status Former smoker; Started at age: 30; Stopped at age: 54 Assessment and Plan Extracted from: Title: Transitional care Author: Cr Meredith MD Date: 07/05/15 Assessment/Plan Anemia Ordered: CBC w/ Differential Hx of ST elevation myocardial infarction Ordered: Basic Metabolic Panel Need for pneumococcal vaccine Paroxysmal atrial fibrillation We will check CBC to follow-up on anemia, BMP to follow-up on renal functions after the contrast material that he was given. Overall he seems to be doing well and we'll continue current medications. I think cardiac rehabilitation is appropriate and will arrange that if okay with Dr. oRdriguez. We discussed a drug-eluting stent in the importance of staying on Plavix. Unfortunately the TKR will anton ve to be deferred for at least 6-12 months. Follow-up with me again in a couple of months (for comprehensive exam) or sooner if needed. We will send a copy of the dictation to Dr. Rodriguez
--- OUTSIDE RECORDS SUMMARY | 2017-06-16 14:00 | External Medical Summary | Referral Summary ---
:1930 Author Organization [facility] [place], [place] , Audiology Address [address] [address] Care Team Providers Name Role Phone Masoud Cr Farley Primary Care Physician Encounter VC Date(s): 05/17/15 - 05/17/15 [facility] [place], [place] , Audiology [address] [address] [place] Discharge Diagnosis: Bilateral sensorineural hearing loss Discharge Disposition: 01-Home or Self Care Attending Physician: Mindy Archer Vital Signs No data available for this [...] Polyp colon(Confirmed)3 Resolved Prostatism(Confirmed) Active 1knees, thumb XQN4vslhzpuawumd j76LOCYUSXIVZX, AND HYPERPLASTIC Allergies, Adverse Reactions, Alerts No Known Allergies Medications arginine Oral, 0 Refill(s) Start Date: 01/08/14 Status: Orderedaspirin 81 mg, Oral, Daily, 0 Refill(s) Start Date: 01/03/14 Status: OrderedCo-Q10 Oral, 0 Refill(s) Start Date: 01/08/14 Status: Ordereddigoxin 125 mcg (0.125 mg) oral tablet 1 tabs, Oral, Daily, # 90 tabs, 3 Refill(s), Pharmacy: [facility], 1 tabs Oral Daily Start Date: 11/24/14 Status: OrderedFish Oil Oral, 0 Refill(s) Start Date: 01/08/14 Status: Orderedlovastatin 40 mg oral tablet 1 1/2 tabs, Oral, Daily, # 135 tabs, 3 Refill(s), Pharmacy: [facility], 1 1/2 tabs Oral Daily Start Date: 11/24/14 Status: Orderedmagnesium oxide Oral, 0 Refill(s) Start Date: 01/08/14 Status: Orderedomeprazole 20 mg oral delayed release capsule 1 caps, Oral, Daily, # 90 caps, 0 Refill(s), Pharmacy: [facility], 1 caps Oral Daily Start Date: 11/11/14 Status: OrderedOsteo Bi-Flex 0 Refill(s) Start Date: 01/08/14 Status: OrderedRythmol 150 mg oral tablet See Instructions, TAKE 1 TABLET EVERY 8 HOURS, # 270 tabs, 3 Refill(s), eRx: [facility], TAKE 1 TABLET EVERY 8 HOURS Start Date: 03/30/15 Status: Orderedtamsulosin 0.4 mg oral capsule 1 caps, Oral, Daily, # 90 caps, 3 Refill(s), [facility], 1 caps Oral Daily Start Date: [...] colonoscopy3 2004 Colonoscopy4 2003 Bilateral inguinal hernia repair1989 Circumcision Eye lid surgeries H/O esophagogastroduodenoscopy Paroxysmal a-fib Right knee surgery x26 Tonsillectomy Vasectomy 1hyperplastic gyaad8OMRA QREB7oodxckpobqm nubvc2cbuly1MQLXRMUZAR CYWMVNMI9GJMHR KNEE SURGERY Social History Social History Type Response Smoking Status Former smoker; Started at age: 30; Stopped at age: 54 Assessment and Plan No data available for this section
--- OUTSIDE RECORDS SUMMARY | 2017-06-16 14:00 | External Medical Summary | Referral Summary ---
:1930 Author Organization [facility] [place] Address [address] [place] [address] [place] [address] Care Team Providers Name Role Phone Cr Meredith V Primary Care Physician Encounter VC Date(s): 03/23/15 - 03/23/15 [facility] [place] [address] [place] [address] [place] [phone] [place] Discharge Diagnosis: Mild [...] Polyp colon(Confirmed)3 Resolved Prostatism(Confirmed) Active 1knees, thumb ECE0jceglbaymvgo q70UVKHVHUBHBV, AND HYPERPLASTIC Allergies, Adverse Reactions, Alerts No Known Allergies Medications arginine Oral, 0 Refill(s) Start Date: 01/08/14 Status: Orderedaspirin 81 mg, Oral, Daily, 0 Refill(s) Start Date: 01/03/14 Status: OrderedCo-Q10 Oral, 0 Refill(s) Start Date: 01/08/14 Status: Ordereddigoxin 125 mcg (0.125 mg) oral tablet 1 tabs, Oral, Daily, # 90 tabs, 3 Refill(s), Pharmacy: [facility], 1 tabs Oral Daily Start Date: 11/24/14 Status: OrderedFish Oil Oral, 0 Refill(s) Start Date: 01/08/14 Status: Orderedlovastatin 40 mg oral tablet 1 1/2 tabs, Oral, Daily, # 135 tabs, 3 Refill(s), Pharmacy: [facility], 1 1/2 tabs Oral Daily Start Date: 11/24/14 Status: Orderedmagnesium oxide Oral, 0 Refill(s) Start Date: 01/08/14 Status: Orderedomeprazole 20 mg oral delayed release capsule 1 caps, Oral, Daily, # 90 caps, 0 Refill(s), Pharmacy: [facility], 1 caps Oral Daily Start Date: 11/11/14 Status: OrderedOsteo Bi-Flex 0 Refill(s) Start Date: 01/08/14 Status: OrderedRythmol 150 mg oral tablet See Instructions, TAKE 1 TABLET EVERY 8 HOURS, # 270 tabs, 3 Refill(s), eRx: [facility], TAKE 1 TABLET EVERY 8 HOURS Start Date: 03/30/15 Status: Orderedtamsulosin 0.4 mg oral capsule 1 caps, Oral, Daily, # 90 caps, 3 Refill(s), Pharmacy: [facility], 1 caps Oral Daily Start Date: [...] Right knee surgery x26 Tonsillectomy Vasectomy 1hyperplastic nwdut6UNFE GELJ5oyfvjunnadw ykruh6ubmyl1ZHEZGBWKWW RQLNFJPU0GOCDK KNEE SURGERY Social History Social History Type [...]
--- OUTSIDE RECORDS SUMMARY | 2017-06-16 14:00 | External Medical Summary | Referral Summary ---
:1930 Author Organization [facility] Address [address] [place] [address] Care Team Providers Name Role Phone Cr Meredith V Primary Care Physician Encounter VC Date(s): 06/23/15 - 06/25/15 [address] [facility] [id number] [place] [address] Discharge Diagnosis: Constipation Discharge Diagnosis: Hyperlipidemia Discharge Diagnosis: Prostatism Discharge Diagnosis: Essential hypertension Discharge Diagnosis: Hx of ST elevation myocardial infarction Discharge Diagnosis: Paroxysmal atrial fibrillation Discharge Diagnosis: Cellulitis Discharge Disposition: 01-Home or Self Care Attending Physician: Darrius Shirley MD Admitting Physician: Darrius Shirley MD Vital Signs Most recent to oldest [Reference Range]: 1 Temperature Oral [35.8-37.3 degC] 36.4 degC (06/25/15 11:30 AM) Apical Heart Rate [60-100 bpm] 68 bpm (06/25/15 2:26 PM) Peripheral Pulse Rate [60-100 bpm] 71 bpm (06/25/15 11:30 AM) Heart Rate Monitored [60-100 bpm] 69 bpm (06/23/15 7:30 AM) Respiratory Rate [14-20 br/min] 16 br/min (06/25/15 11:30 AM) Blood Pressure [90-140/60-90 mmHg] 105/52 mmHg (06/25/15 11:30 AM) Mean Arterial Pressure, Cuff 82 mmHg (06/23/15 7:30 AM) SpO2 96 % (06/25/15 11:30 AM) Problem List Condition Effective Dates Status [...] At Risk for Infection in Nutrition Planof Alfs3Wyisvjz added automatically by system based on initiation of Knowledge Deficit Plan of Gdzm6wdejd, thumb MAD4keddfxsndwfp [id number], AND FAJLQSOTRGCJ4Wsmsgkk added automatically by system based on initiation [...] HOURS, # 270 tabs, 3 Refill(s), eRx: [facility], TAKE 1 TABLET EVERY 8 HOURS Start Date: 03/30/15 Status: Orderedtamsulosin 0.4 mg oral capsule 1 caps, Oral, Daily, # 90 caps, 3 Refill(s), [facility], 1 caps Oral Daily Start Date: 11/09/14 Status: Ordered Results Hematology Most recent to oldest [Reference Range]: 1 WBC [4.8-10.8 10*3/uL] 9.4 10*3/uL (06/23/15 5:47 AM) RBC [4.60-6.20] 4.17 *LOW* (06/23/15 5:47 AM) Hgb [14.0-18.0 gm/dL] 12.5 gm/dL *LOW* (06/23/15 5:47 AM) Hct [42.0-52.0 %] 36.9 % *LOW* (06/23/15 5:47 AM) MCV [82.0-99.0 fL] 88.5 fL (06/23/15 5:47 AM) MCH [27.0-32.0 pg] 30.0 pg (06/23/15 5:47 AM) MCHC [32.0-36.0 gm/dL] 33.9 gm/dL (06/23/15 5:47 AM) RDW [11.5-14.5 %] 13.4 % (06/23/15 5:47 AM) Platelet [150-400 10*3/uL] 236 10*3/uL (06/23/15 5:47 AM) MPV [9.4-12.3 fL] 9.5 fL (06/23/15 5:47 AM) Immature Granulocytes [0.0-1.0 %] 0.3 % (06/23/15 5:47 AM) Neutrophils [51-75 %] 80 % *HI* (06/23/15 5:47 AM) Lymphocytes [20-46 %] 7 % *LOW* (06/23/15 5:47 AM) Monocytes [4-11 %] 12 % *HI* (06/23/15 5:47 AM) Eosinophils [0-4 %] 1 % (06/23/15 5:47 AM) Basophils [0-2 %] 0 % (06/23/15 5:47 AM) Neutro Absolute [1.90-7.00 10*3] 7.55 10*3 *HI* (06/23/15 5:47 AM) Lymph Absolute [0.80-3.30 10*3] 0.64 10*3 *LOW* (06/23/15 5:47 AM) [place] Absolute [0.30-1.00 10*3] 1.08 10*3 *HI* (06/23/15 5:47 AM) Eos Absolute [0.00-0.50 10*3] 0.11 10*3 (06/23/15 5:47 AM) Baso Absolute [0.00-0.20 10*3] 0.02 10*3 (06/23/15 5:47 AM) Nucleated RBC Automated [0 /100 WBC] 0.0 /100 WBC (06/23/15 5:47 AM) Sed Rate [0-15] 45 *HI* (06/23/15 5:47 AM) Coagulation Most recent to oldest [Reference Range]: 1 D-Dimer [0-600 ng{FEU}/mL] 1755 ng{FEU}/mL 1 *HI* (06/24/15 9:03 PM) 1Result Comment: A D Dimer result of <500 ng/mL FEU has a negative predictive value of approximately 100% for the exclusion of DVT and acute PE.Chemistry Most recent to oldest [Reference Range]: 1 Sodium Lvl [136-144 mEq/L] 133 mEq/L *LOW* (06/23/15 5:47 AM) Potassium Lvl [3.6-5.1 mEq/L] 3.9 mEq/L (06/23/15 5:47 AM) Chloride [99-109 mEq/L] 101 mEq/L (06/23/15 5:47 AM) CO2 [22-32 mEq/L] 26 mEq/L (06/23/15 5:47 AM) AGAP [3-20] 6 (06/23/15 5:47 AM) BUN [4-20 mg/dL] 18 mg/dL (06/23/15 5:47 AM) Glucose Lvl [70-100 mg/dL] 128 mg/dL *HI* (06/23/15 5:47 AM) Creatinine Lvl [0.64-1.27 mg/dL] 1.04 mg/dL (06/23/15 5:47 AM) eGFR [>60] >60 1 (06/23/15 5:47 AM) Calcium Lvl [8.6-10.0 mg/dL] 8.4 mg/dL *LOW* (06/23/15 5:47 AM) Albumin Lvl [3.5-4.8 gm/dL] 2.8 gm/dL *LOW* (06/23/15 5:47 AM) Total Protein [6.1-7.9 gm/dL] 6.2 gm/dL (06/23/15 5:47 AM) Globulin [1.9-4.3 gm/dL] 3.4 gm/dL (06/23/15 5:47 AM) ALT [17-63 U/L] 23 U/L (06/23/15 5:47 AM) AST [15-41 U/L] 32 U/L (06/23/15 5:47 AM) Alk Phos [26-104 U/L] 48 U/L (06/23/15 5:47 AM) Bili Total [0.2-1.2 mg/dL] 0.7 mg/dL 2 (06/23/15 5:47 AM) BNP [0-99 pg/mL] 357 pg/mL *HI* (06/24/15 4:16 PM) Troponin [<0.06 ng/mL] 2.28 ng/mL 3 *HHI* (06/23/15 5:51 PM) Creatinine Venous [0.7-1.2 mg/dL] 1.0 mg/dL (06/23/15 5:53 AM) 1Result Comment: Multiply eGFR results by 1.21 for race.2Result Comment: Naproxen, specifically the metabolite O-desmethylnaproxen, may cause spurious elevation in Total Bilirubin levels.3Result Comment: Critical value called, and read-back verified. Called to KARMEN Lynn ([id number]) on 06/23/2015 at 19:22.Microbiology Reports TEST:Wound Culture and Smear STATUS:Order in Progress BODY SITE:Arm, Right SOURCE:Skin COLLECTED DATE/TIME:06/23/15 12:37 PMWound Culture and SmearStaphylococcus , coagulase negative scant amount Susceptibility not performed ORGANISM:Staphylococcus coagulase negative Immunizations Vaccine Date Refusal Reason influenza virus [...] Heart with Coronary 06/17/15 Angiography3 S/P colonoscopy4 2006 Bilateral ptosis surgery5 2005 S/P colonoscopy6 2004 Colonoscopy7 2003 Bilateral inguinal hernia repair8 1989 Circumcision Eye lid surgeries H/O esophagogastroduodenoscopy Paroxysmal a-fib Right knee surgery x29 Tonsillectomy Vasectomy 1auto-populated from documented surgical bviu1vueo-bobaukmcz from documented surgical rxep2plvv-xuflidmlk from documented surgical cgav7gsblazvkjcov kqxcj6TXYR VNON6miazxsrjvln hawqf0yfgnf1SHJXNZMLKS NQNMMAVB5PYCHD KNEE SURGERY Social History Social History Type Response Smoking Status Former smoker; Started at age: 30; Stopped at age: 54 Assessment and Plan No data available for this section
--- OUTSIDE RECORDS SUMMARY | 2017-06-16 14:00 | External Medical Summary | Referral Summary ---
:1930 Author Organization [facility] Address [address] [place] [address] [place] [address] Care Team Providers Name Role Phone Cr Meredith V Primary Care Physician Encounter VC Date(s): 03/23/15 - 03/23/15 [facility] [address] [place] [address] [place] [phone] [place] Discharge Diagnosis: Mild aortic stenosis Discharge Diagnosis: Paroxysmal a-fib Discharge Disposition: 01-Home or Self Care Attending Physician: Alxeis Rogers MD Admitting Physician: Alexis Rogers MD [...] Polyp colon(Confirmed)3 Resolved Prostatism(Confirmed) Active 1knees, thumb QWV9yfaczaygefaj [id number], AND HYPERPLASTIC Allergies, Adverse Reactions, Alerts No Known Allergies Medications arginine Oral, 0 Refill(s) Start Date: 01/08/14 Status: Orderedaspirin 81 mg, Oral, Daily, 0 Refill(s) Start Date: 01/03/14 Status: OrderedCo-Q10 Oral, 0 Refill(s) Start Date: 01/08/14 Status: Ordereddigoxin 125 mcg (0.125 mg) oral tablet 1 tabs, Oral, Daily, # 90 tabs, 3 Refill(s), Pharmacy: [facility], 1 tabs Oral Daily Start Date: 11/24/14 Status: OrderedFish Oil Oral, 0 Refill(s) Start Date: 01/08/14 Status: Orderedlovastatin 40 mg oral tablet 1 1/2 tabs, Oral, Daily, # 135 tabs, 3 Refill(s), Pharmacy: [facility], 1 1/2 tabs Oral Daily Start Date: 11/24/14 Status: Orderedmagnesium oxide Oral, 0 Refill(s) Start Date: 01/08/14 Status: Orderedomeprazole 20 mg oral delayed release capsule 1 caps, Oral, Daily, # 90 caps, 0 Refill(s), Pharmacy: [facility], 1 caps Oral Daily Start Date: 11/11/14 Status: OrderedOsteo Bi-Flex 0 Refill(s) Start Date: 01/08/14 Status: OrderedRythmol 150 mg oral tablet See Instructions, TAKE 1 TABLET EVERY 8 HOURS, # 270 tabs, 3 Refill(s), eRx: [facility], TAKE 1 TABLET EVERY 8 HOURS Start Date: 03/30/15 Status: Orderedtamsulosin 0.4 mg oral capsule 1 caps, Oral, Daily, # 90 caps, 3 Refill(s), Pharmacy: [facility], 1 caps Oral Daily Start Date: [...] Right knee surgery x26 Tonsillectomy Vasectomy 1hyperplastic mslye4CAWL ABKE2ymvyoqxuxhx pgilv7zxdhd7GAPNHSJUXY LJTBCAIN6ZCUMU KNEE SURGERY Social History Social History Type [...]
--- OUTSIDE RECORDS SUMMARY | 2017-06-16 14:00 | External Medical Summary | Referral Summary ---
:1930 Author Organization [facility] Address [address] [place] [address] [place] [address] Care Team Providers Name Role Phone Cr Meredith V Primary Care Physician Encounter VC Date(s): 03/23/15 - 03/23/15 [facility] [address] [place] [address] [place] [phone] [place] Discharge Diagnosis: Mild [...] Polyp colon(Confirmed)3 Resolved Prostatism(Confirmed) Active 1knees, thumb SLA6elimstmzooaw [id number], AND HYPERPLASTIC Allergies, Adverse Reactions, Alerts No Known Allergies Medications arginine Oral, 0 Refill(s) Start Date: 01/08/14 Status: Orderedaspirin 81 mg, Oral, Daily, 0 Refill(s) Start Date: 01/03/14 Status: OrderedCo-Q10 Oral, 0 Refill(s) Start Date: 01/08/14 Status: Ordereddigoxin 125 mcg (0.125 mg) oral tablet 1 tabs, Oral, Daily, # 90 tabs, 3 Refill(s), Pharmacy: [facility], 1 tabs Oral Daily Start Date: 11/24/14 Status: OrderedFish Oil Oral, 0 Refill(s) Start Date: 01/08/14 Status: Orderedlovastatin 40 mg oral tablet 1 1/2 tabs, Oral, Daily, # 135 tabs, 3 Refill(s), Pharmacy: [facility], 1 1/2 tabs Oral Daily Start Date: 11/24/14 Status: Orderedmagnesium oxide Oral, 0 Refill(s) Start Date: 01/08/14 Status: Orderedomeprazole 20 mg oral delayed release capsule 1 caps, Oral, Daily, # 90 caps, 0 Refill(s), Pharmacy: [facility], 1 caps Oral Daily Start Date: 11/11/14 Status: OrderedOsteo Bi-Flex 0 Refill(s) Start Date: 01/08/14 Status: OrderedRythmol 150 mg oral tablet See Instructions, TAKE 1 TABLET EVERY 8 HOURS, # 270 tabs, 3 Refill(s), eRx: [facility], TAKE 1 TABLET EVERY 8 HOURS Start Date: 03/30/15 Status: Orderedtamsulosin 0.4 mg oral capsule 1 caps, Oral, Daily, # 90 caps, 3 Refill(s), Pharmacy: [facility], 1 caps Oral Daily Start Date: [...] Right knee surgery x26 Tonsillectomy Vasectomy 1hyperplastic oprqd5KIVB ZNGE7rdmiaedsehj muqng9vetgw7RZIGBNMPPK OJINOIWH4PMNBG KNEE SURGERY Social History Social History Type [...]
--- OUTSIDE RECORDS SUMMARY | 2017-06-16 14:02 | External Medical Summary | Referral Summary ---
:1930 Author Organization [facility] Address [address] [place] [address] Care Team Providers Name Role Phone Cr Meredith V Primary Care Physician Encounter VC Date(s): 06/17/15 - 06/22/15 [facility] [address] [place] [address] Discharge Diagnosis: Thrombophlebitis of arm at previous IV site Discharge Diagnosis: Aortic stenosis Discharge Diagnosis: Hypercholesterolemia Discharge Diagnosis: Hypomagnesemia Discharge Diagnosis: PAF (paroxysmal atrial fibrillation) Discharge Diagnosis: Essential hypertension Discharge Diagnosis: STEMI (ST elevation myocardial infarction) Discharge Disposition: 01-Home or Self Care Attending Physician: Brennen Rodriguez MD Admitting Physician: Brennen Rodriguez MD Vital Signs Most recent to oldest [Reference Range]: 1 Temperature Oral [35.8-37.3 degC] 36.7 degC (06/22/15 11:00 AM) Temperature Temporal Artery [36.3-37.8 degC] 37 degC (06/19/15 4:00 AM) Apical Heart Rate [60-100 bpm] 140 bpm *HI* (06/19/15 6:02 PM) Peripheral Pulse Rate [60-100 bpm] 62 bpm (06/22/15 11:00 AM) Heart Rate Monitored [60-100 bpm] 84 bpm (06/19/15 8:00 AM) Respiratory Rate [14-20 br/min] 16 br/min (06/22/15 11:00 AM) Blood Pressure [90-140/60-90 mmHg] 105/66 mmHg (06/22/15 11:00 AM) Mean Arterial Pressure, Cuff 82 mmHg (06/19/15 6:11 PM) SpO2 96 % (06/22/15 11:00 AM) Problem List Condition Effective Dates Status Health Status Informant STEMI (ST elevation myocardial Active infarction)(Confirmed) Acute pain(Confirmed) Active Allergic rhinitis/hay Active fever(Confirmed) Allergies(Confirmed) Resolved At risk for infection(Confirmed)1 Active At risk of pressure sore(Confirmed) Active Atrial fibrillation(Confirmed) Resolved Eustachian tube 05/28/14 Active dysfunction(Confirmed) Essential hypertension(Confirmed) Active Adenomatous polyp(Confirmed) Active GERD(Confirmed) Resolved High cholesterol(Confirmed) Active Hyperlipidemia(Confirmed) Active Hyperplastic polyp of Active intestine(Confirmed) Impacted cerumen(Confirmed) Active Ear infections(Confirmed) Active Knowledge deficit(Confirmed)2 Active Osteoarthritis(Confirmed)3 Resolved Paroxysmal atrial 1996 Active fibrillation(Confirmed)4 Polyp colon(Confirmed)5 Resolved Prostatism(Confirmed) Active Tissue perfusion Active alteration(Confirmed)6 1Problem added automatically by system based on initiation of At Risk for Infection in Nutrition Planof Ealg5Vkimmcy added automatically by system based on initiation of Knowledge Deficit Plan of Bmqf7wfzpx, thumb PJQ0apgecznvvciy o74MQILSMHFKCO, AND GYKAUVFDTDTY8Muryawh added automatically by system based on initiation [...] BIDWM, 0 Refill(s) Start Date: 06/22/15 Status: OrderedFish Oil 1,000 mg, Oral, Daily, 0 Refill(s) Start Date: 01/08/14 Status: OrderedKeflex 500 mg oral capsule 500 mg 1 caps, Oral, q8hr, 0 Refill(s) Start Date: 06/22/15 Status: OrderedLipitor [...] HOURS, # 270 tabs, 3 Refill(s), eRx: [facility], TAKE 1 TABLET EVERY 8 HOURS Start Date: 03/30/15 Status: Orderedtamsulosin 0.4 mg oral capsule 1 caps, Oral, Daily, # 90 caps, 3 Refill(s), [facility], 1 caps Oral Daily Start Date: 11/09/14 Status: Ordered Results Hematology Most recent to oldest [Reference Range]: 1 WBC [4.8-10.8 10*3/uL] 6.4 10*3/uL (06/21/15 5:21 PM) RBC [4.60-6.20] 3.96 *LOW* (06/21/15 5:21 PM) Hgb [14.0-18.0 gm/dL] 11.6 gm/dL *LOW* (06/21/15 5:21 PM) Hct [42.0-52.0 %] 35.3 % *LOW* (06/21/15 5:21 PM) MCV [82.0-99.0 fL] 89.1 fL (06/21/15 5:21 PM) MCH [27.0-32.0 pg] 29.3 pg (06/21/15 5:21 PM) MCHC [32.0-36.0 gm/dL] 32.9 gm/dL (06/21/15 5:21 PM) RDW [11.5-14.5 %] 14.0 % (06/21/15 5:21 PM) Platelet [150-400 10*3/uL] 202 10*3/uL (06/21/15 5:21 PM) MPV [9.4-12.3 fL] 9.5 fL (06/21/15 5:21 PM) Immature Granulocytes [0.0-1.0 %] 0.3 % (06/17/15 2:29 PM) Neutrophils [51-75 %] 63 % (06/17/15 2:29 PM) Lymphocytes [20-46 %] 27 % (06/17/15 2:29 PM) Monocytes [4-11 %] 7 % (06/17/15 2:29 PM) Eosinophils [0-4 %] 2 % (06/17/15 2:29 PM) Basophils [0-2 %] 0 % (06/17/15 2:29 PM) Neutro Absolute [1.90-7.00 10*3] 5.54 10*3 (06/17/15 2:29 PM) Lymph Absolute [0.80-3.30 10*3] 2.39 10*3 (06/17/15 2:29 PM) [place] Absolute [0.30-1.00 10*3] 0.64 10*3 (06/17/15 2:29 PM) Eos Absolute [0.00-0.50 10*3] 0.14 10*3 (06/17/15 2:29 PM) Baso Absolute [0.00-0.20 10*3] 0.02 10*3 (06/17/15 2:29 PM) Nucleated RBC Automated [0 /100 WBC] 0.0 /100 WBC (06/17/15 2:29 PM) Coagulation Most recent to oldest [Reference Range]: 1 P2Y12 Reaction Units 171.0 1 (06/18/15 7:05 AM) 1Result Comment: Pre-Drug PRU reference is 194-418. PRU levels lower than 194 are associated with expected antiplatelet effect. The performance characteristics of the P2Y12 inhibition test has been established for Clopidogrel, Prasugrel, and Ticagrelor. Expected values may be used for these drugs.Chemistry Most recent to oldest [Reference Range]: 1 Sodium Lvl [136-144 mEq/L] 136 mEq/L (06/20/15 6:48 AM) Potassium Lvl [3.6-5.1 mEq/L] 4.1 mEq/L (06/20/15 6:48 AM) Chloride [99-109 mEq/L] 104 mEq/L (06/20/15 6:48 AM) CO2 [22-32 mEq/L] 26 mEq/L (06/20/15 6:48 AM) AGAP [3-20] 6 (06/20/15 6:48 AM) BUN [4-20 mg/dL] 17 mg/dL (06/20/15 6:48 AM) Glucose Lvl [70-100 mg/dL] 106 mg/dL *HI* (06/20/15 6:48 AM) Creatinine Lvl [0.64-1.27 mg/dL] 1.00 mg/dL (06/20/15 6:48 AM) eGFR [>60] >60 1 (06/20/15 6:48 AM) Calcium Lvl [8.6-10.0 mg/dL] 8.5 mg/dL *LOW* (06/20/15 6:48 AM) Albumin Lvl [3.5-4.8 gm/dL] 3.5 gm/dL (06/17/15 2:29 PM) Total Protein [6.1-7.9 gm/dL] 6.6 gm/dL (06/17/15 2:29 PM) Globulin [1.9-4.3 gm/dL] 3.1 gm/dL (06/17/15 2:29 PM) ALT [17-63 U/L] 21 U/L (06/17/15 2:29 PM) AST [15-41 U/L] 29 U/L (06/17/15 2:29 PM) Alk Phos [26-104 U/L] 46 U/L (06/17/15 2:29 PM) Bili Total [0.2-1.2 mg/dL] 0.8 mg/dL 2 (06/17/15 2:29 PM) Magnesium Lvl [1.8-2.5 mg/dL] 2.0 mg/dL (06/20/15 6:48 AM) Troponin [<0.06 ng/mL] 37.05 ng/mL 3 *HHI* (06/19/15 5:09 AM) Sodium Venous [136-144 mEq/L] 137 mEq/L (06/17/15 2:26 PM) Potassium Venous [3.6-5.1 mEq/L] 3.9 mEq/L 4 (06/17/15 2:26 PM) Calcium Ionized Venous [1.19-1.41 mmol/L] 1.10 mmol/L *LOW* (06/17/15 2:26 PM) Total CO2 Venous [25-29 mEq/L] 24 mEq/L *LOW* (06/17/15 2: PM) HGB Venous NPT [14.0-16.0 gm/dL] 14.6 gm/dL (06/17/15 2:26 PM) HCT Venous [42.0-52.0 %] 43.0 % (06/17/15: PM) Glucose Venous [70-100 mg/dL] 133 mg/dL *HI* (06/17/15 2:26 PM) BUN Venous [4-20] 21 *HI* (06/17/15: PM) Creatinine Venous [0.7-1.2 mg/dL] 1.2 mg/dL (06/17/15 2: PM) Venous CL [99-109 mEq/L] 104 mEq/L (06/17/15 2: PM) Anion Gap, Silvio [3-20] 9 (06/17/15 2:26 PM) Activated Clotting Time NPT [100-146 seconds] 202 seconds *HI* (06/17/15 3:08 PM) Chol [0-200 mg/dL] 179 mg/dL (06/17/15 8:12 PM) Trig [0-150 mg/dL] 76 mg/dL (06/17/15 8:12 PM) HDL [>40 mg/dL] 49 mg/dL (06/17/15 8:12 PM) LDL [0-100 mg/dL] 115 mg/dL *HI* (06/17/15 8:12 PM) VLDL Cholesterol [0-30 mg/dL] 15 mg/dL (06/17/15 8:12 PM) Cardiac Risk [0.0-5.7] 3.7 (06/17/15 8:12 PM) 1Result Comment: Multiply eGFR results by 1.21 for race.2Result Comment: Naproxen, specifically the metabolite O-desmethylnaproxen, may cause spurious elevation in Total Bilirubin levels.3Result Comment: Critical value called, and read-back verified. Called to Hansa León. 06/19/2015 05:494Result Comment: This test was performed on a whole blood specimen. The presence or absence of hemolysis cannot be assessed. Hemolysis can falsely elevate potassium levels. Normals are for venous specimens only.Therapeutic Drug Monitoring Most recent to oldest [Reference Range]: 1 Digoxin Lvl [0.8-2.0 ng/mL] 0.6 ng/mL *LOW* (06/17/15 2:29 PM) Urinalysis Most recent to oldest [Reference Range]: 1 Type Venous (06/17/15 2:12 PM) Immunizations Vaccine Date Refusal Reason influenza virus [...] x29 Tonsillectomy Vasectomy 1auto-populated from documented surgical sgab3cvep-mfgkuqeuf from documented surgical kfoj1slzk-cozycrqmx from documented surgical byji3agmuvbskpmba iheea8GSHK DIGJ1qkhievarxge aluqp9rrkai8AGLXXXCVDW QUYVDTXY1VZDIO KNEE SURGERY Social History Social History Type Response Smoking Status Former smoker; Started at age: 30; Stopped at age: 54 Assessment and Plan No data available for this section
--- OUTSIDE RECORDS SUMMARY | 2017-06-16 14:05 | External Medical Summary | Referral Summary ---
:1930 Author Organization [facility] Otolaryngology Address [address] [address] Care Team Providers Name Role Phone Cr Meredith V Primary Care Physician Encounter [facility] [id number] Date(s): 05/17/15 - 05/17/15 [facility] , Otolaryngology [address] [address] [place] Discharge Diagnosis: Orthostatic hypotension [...] Polyp colon(Confirmed)3 Resolved Prostatism(Confirmed) Active 1knees, thumb RSS6elkizjvxfbgj b10LBNGUHQLFMY, AND HYPERPLASTIC Allergies, Adverse Reactions, Alerts No Known Allergies Medications arginine Oral, 0 Refill(s) Start Date: 01/08/14 Status: Orderedaspirin 81 mg, Oral, Daily, 0 Refill(s) Start Date: 01/03/14 Status: OrderedCo-Q10 Oral, 0 Refill(s) Start Date: 01/08/14 Status: Ordereddigoxin 125 mcg (0.125 mg) oral tablet 1 tabs, Oral, Daily, # 90 tabs, 3 Refill(s), Pharmacy: [facility], 1 tabs Oral Daily Start Date: 11/24/14 Status: OrderedFish Oil Oral, 0 Refill(s) Start Date: 01/08/14 Status: Orderedlovastatin 40 mg oral tablet 1 1/2 tabs, Oral, Daily, # 135 tabs, 3 Refill(s), Pharmacy: [facility], 1 1/2 tabs Oral Daily Start Date: 11/24/14 Status: Orderedmagnesium oxide Oral, 0 Refill(s) Start Date: 01/08/14 Status: Orderedomeprazole 20 mg oral delayed release capsule 1 caps, Oral, Daily, # 90 caps, 0 Refill(s), Pharmacy: [facility], 1 caps Oral Daily Start Date: 11/11/14 Status: OrderedOsteo Bi-Flex 0 Refill(s) Start Date: 01/08/14 Status: OrderedRythmol 150 mg oral tablet See Instructions, TAKE 1 TABLET EVERY 8 HOURS, # 270 tabs, 3 Refill(s), eRx: [facility], TAKE 1 TABLET EVERY 8 HOURS Start Date: 03/30/15 Status: Orderedtamsulosin 0.4 mg oral capsule 1 caps, Oral, Daily, # 90 caps, 3 Refill(s), Pharmacy: [facility], 1 caps Oral Daily Start Date: [...] Right knee surgery x26 Tonsillectomy Vasectomy 1hyperplastic imytw8SIQE FHKJ2nnmgafppfkz nnlgw6cvuyf2BTJTLSUPYP ILAVMKHN2SHMTU KNEE SURGERY Social History Social History Type [...] test needs to be performed by a prepress specialist (typewriter ribbon winder). TREATMENT Treatment for recent onset of hearing [...] 07/22/2006 Document Revised: 10/13/2012 Document Reviewed: 11/16/2010 ExitCare Patient Information 2015 [employer]. This information is not intended to replace [...] Document Reviewed: 01/22/2014 ExitCare Patient Information 2015 [employer], [facility]. This information is not intended to replace advice given to you by your health care provider. Make sure you discuss any questions you have with your health care provider. No follow up information was provided.
--- OUTSIDE RECORDS SUMMARY | 2017-06-16 14:05 | External Medical Summary | Referral Summary ---
:1930 Author Organization [facility] Address [address] [place] [address] [place] [address] Care Team Providers Name Role Phone Cr Meredith V Primary Care Physician Encounter [facility] Date(s): 03/23/15 - 03/23/15 [facility] [address] [place] [address] [place] [phone] [place] Discharge Diagnosis: Mild [...] Polyp colon(Confirmed)3 Resolved Prostatism(Confirmed) Active 1knees, thumb QNC0qwcfcmaepknz [id number], AND HYPERPLASTIC Allergies, Adverse Reactions, Alerts No Known Allergies Medications arginine Oral, 0 Refill(s) Start Date: 01/08/14 Status: Orderedaspirin 81 mg, Oral, Daily, 0 Refill(s) Start Date: 01/03/14 Status: OrderedCo-Q10 Oral, 0 Refill(s) Start Date: 01/08/14 Status: Ordereddigoxin 125 mcg (0.125 mg) oral tablet 1 tabs, Oral, Daily, # 90 tabs, 3 Refill(s), Pharmacy: [facility], 1 tabs Oral Daily Start Date: 11/24/14 Status: OrderedFish Oil Oral, 0 Refill(s) Start Date: 01/08/14 Status: Orderedlovastatin 40 mg oral tablet 1 1/2 tabs, Oral, Daily, # 135 tabs, 3 Refill(s), Pharmacy: [facility], 1 1/2 tabs Oral Daily Start Date: 11/24/14 Status: Orderedmagnesium oxide Oral, 0 Refill(s) Start Date: 01/08/14 Status: Orderedomeprazole 20 mg oral delayed release capsule 1 caps, Oral, Daily, # 90 caps, 0 Refill(s), Pharmacy: [id number], 1 caps Oral Daily Start Date: 11/11/14 Status: OrderedOsteo Bi-Flex 0 Refill(s) Start Date: 01/08/14 Status: OrderedRythmol 150 mg oral tablet See Instructions, TAKE 1 TABLET EVERY 8 HOURS, # 270 tabs, 3 Refill(s), eRx: [facility], TAKE 1 TABLET EVERY 8 HOURS Start Date: 03/30/15 Status: Orderedtamsulosin 0.4 mg oral capsule 1 caps, Oral, Daily, # 90 caps, 3 Refill(s), Pharmacy: [facility], 1 caps Oral Daily Start Date: [...] Right knee surgery x26 Tonsillectomy Vasectomy 1hyperplastic [id number] KNEE SURGERY Social History Social History Type [...]
--- OUTSIDE RECORDS SUMMARY | 2017-06-16 14:05 | External Medical Summary | Referral Summary ---
:1930 Author Organization [facility] Address [address] [place] [address] DAV[place] Kitchen [id number] Care Team Providers Name Role Phone Cr Meredith V Primary Care Physician Encounter VC Date(s): 09/20/16 - 09/20/16 [facility] [address] [place] [phone] Discharge Diagnosis: Osteoarthritis of knees, bilateral Discharge Diagnosis: Mild CAD Discharge Diagnosis: Aortic stenosis Discharge Diagnosis: GERD Discharge Diagnosis: Hyperlipidemia Discharge Diagnosis: Essential hypertension Discharge Diagnosis: BPH with obstruction/lower urinary tract symptoms Discharge Disposition: 01-Home or Self Care Attending Physician: Cr Meredith MD Admitting Physician: Cr Meredith MD Vital Signs Most recent to oldest [Reference Range]: 1 Temperature Tympanic [36.6-38.1 degC] 36.6 degC (09/20/16 3:57 PM) Peripheral Pulse Rate [60-100 bpm] 68 bpm (09/20/16 3:57 PM) Respiratory Rate [14-20 br/min] 15 br/min (09/20/16 3:57 PM) Blood Pressure [90-140/60-90 mmHg] 118/70 mmHg (09/20/16 3:57 PM) SpO2 96 % (09/20/16 3:57 PM) Problem List Condition Effective Dates Status [...] At Risk for Infection in Nutrition Planof Qkig6Ibdipmn added automatically by system based on initiation of Knowledge Deficit Plan of Xsrg8yhmvz, thumb VEA6lrnxzzuczngv [id number], AND CDOCSCHOAMDC4Ozqnicz added automatically by system based on initiation [...] HOURS, # 270 tabs, 3 Refill(s), eRx: [facility], TAKE 1 TABLET EVERY 8 HOURS Start Date: 03/30/15 Status: Orderedtamsulosin 0.4 mg oral capsule See Instructions, TAKE 1 CAPSULE EVERY DAY, # 90 caps, 3 Refill(s), eRx: [facility], TAKE 1 CAPSULE EVERY DAY Start Date: 10/25/15 Status: Ordered Results No data available for this section Immunizations Given and Recorded Vaccine Date Status Refusal Reason influenza virus vaccine, inactivated 06/25/16 Given influenza virus vaccine, inactivated1 07/12/14 Recorded influenza virus vaccine, live 06/19/13 Given influenza virus vaccine, live 06/25/12 Given pneumococcal 13-valent conjugate vaccine 07/05/15 Given pneumococcal 23-polyvalent vaccine 06/01/05 Recorded tetanus-diphth toxoids (Td) adult/adol 02/02/09 Recorded 1Result Comment: [07/12/2014] SEE SCANNED NOTE Procedures [...] x29 Tonsillectomy Vasectomy 1auto-populated from documented surgical jkff3khzt-kqexevmzl from documented surgical lfcm4dmyq-sejlteivx from documented surgical fdno9vdkdrmxwcreu eyiqh3NLKR RNMO6vlljqmnjhvg liguk9lnacd2DGVEOJELKW MPNOGGJS9SALEV KNEE SURGERY Social History Social History Type Response Smoking Status Former smoker; Started at age: 30; Stopped at age: 54 Assessment and Plan Extracted [facility]: [facility] Author: Cr Meredith MD Date: 09/20/16 Impression and Plan Diagnosis Hyperlipidemia (VJM11-DZ E78.5, Discharge, Medical). Essential hypertension (LHI47-PK I10, Discharge, Medical). Mild CAD (CMD56-TV I25.10, Discharge, Medical). Aortic stenosis (FBS02-JK I35.0, Discharge, Medical). GERD (ZHU16-KH K21.9, Discharge, Medical). Osteoarthritis of knees, bilateral (RPQ48-FO M17.0, Discharge, Medical). BPH with obstruction/lower urinary tract symptoms (VVO89-UK N40.1, Discharge, Medical).
--- OUTSIDE RECORDS SUMMARY | 2017-06-16 14:06 | External Medical Summary | Referral Summary ---
:1930 Author Organization [facility] Address [address] [place] [address] DAV[place] Kitchen [id number] Care Team Providers Name Role Phone Cr Meredith V Primary Care Physician Encounter VC Date(s): 09/05/15 - 09/05/15 [facility] [place] [place] [phone] [place] Discharge Disposition: 01-Home or Self Care Attending Physician: Cr Meredith MD Admitting Physician: Cr Meredith MD Vital Signs Most recent to oldest [Reference Range]: 1 Temperature Tympanic [36.6-38.1 degC] 36 degC *LOW* (09/05/15 2:47 PM) Peripheral Pulse Rate [60-100 bpm] 68 bpm (09/05/15 2:47 PM) Blood Pressure [90-140/60-90 mmHg] 99/59 mmHg (09/05/15 2:47 PM) Problem List Condition Effective Dates Status [...] At Risk for Infection in Nutrition Planof Msno5Wjuncly added automatically by system based on initiation of Knowledge Deficit Plan of Jcra6rxqmm, thumb WFU2isttzmoneyql d15PDSZVNFPJNQ, AND AGMYXPRDDAYP7Czqedcy added automatically by system based on initiation [...] HOURS, # 270 tabs, 3 Refill(s), eRx: [facility], TAKE 1 TABLET EVERY 8 HOURS Start Date: 03/30/15 Status: Orderedtamsulosin 0.4 mg oral capsule 1 caps, Oral, Daily, # 90 caps, 3 Refill(s), [facility], 1 caps Oral Daily Start Date: [...] x29 Tonsillectomy Vasectomy 1auto-populated from documented surgical gvlv3ptjz-upyjmdyfc from documented surgical rnhk9abvh-msyccwejm from documented surgical iyel8qyavrtmucsej cyvba5BUAW KEJH2jdjbogwakmi tilch7igxcb2MPSPVSQUHP ZBFNQKSW5DHVAK KNEE SURGERY Social History Social History Type Response Smoking Status Former smoker; Started at age: 30; Stopped at age: 54 Assessment and Plan No data available for this section
--- OUTSIDE RECORDS SUMMARY | 2017-06-16 14:06 | External Medical Summary | Referral Summary ---
:1930 Author Organization [facility] , [facility] Address [address] [address] Care Team Providers Name Role Phone JdpriscillaCr V Primary Care Physician Encounter VC Date(s): 05/17/15 - 05/17/15 [facility], [facility] [address] [phone] [place] Discharge Diagnosis: Bilateral sensorineural [...] At Risk for Infection in Nutrition Planof Drzd5Nksqfbf added automatically by system based on initiation of Knowledge Deficit Plan of Mmci8fkptq, thumb FYM1iurhxwxrgouy g46SWTJPAONFSP, AND KLZITITQLIMI9Upoiriw added automatically by system based on initiation [...] HOURS, # 270 tabs, 3 Refill(s), eRx: [facility], TAKE 1 TABLET EVERY 8 HOURS Start Date: 03/30/15 Status: Orderedtamsulosin 0.4 mg oral capsule See Instructions, TAKE 1 CAPSULE EVERY DAY, # 90 caps, 3 Refill(s), eRx: [facility], TAKE 1 CAPSULE EVERY [...] x29 Tonsillectomy Vasectomy 1auto-populated from documented surgical ofrr1sjhn-gtuxqzhem from documented surgical aulq9vuui-pelmsemkx from documented surgical tbqf6pspqhsweokeq ueplq8AHLQ FBEX8vkrtqymmwku hvuby6uygkg3EGOEYXBUUE MAHIJNLA3FXGJA KNEE SURGERY Social History Social History Type Response Smoking Status Former smoker; Started at age: 30; Stopped at age: 54 Assessment and Plan No data available for this section
--- OUTSIDE RECORDS SUMMARY | 2017-06-16 14:06 | External Medical Summary | Referral Summary ---
:1930 Author Organization [facility] Address [address] [place] [address] [place] [phone] Care Team Providers Name Role Phone Cr Meredith V Primary Care Physician Encounter VC Date(s): 03/23/15 - 03/23/15 [facility] [address] [place] [address] [place] [phone] [place] Discharge Diagnosis: Mild [...] Polyp colon(Confirmed)3 Resolved Prostatism(Confirmed) Active 1knees, thumb IRZ7nqgheiugspjy x77BRJYEFIEYZA, AND HYPERPLASTIC Allergies, Adverse Reactions, Alerts No Known Allergies Medications arginine Oral, 0 Refill(s) Start Date: 01/08/14 Status: Orderedaspirin 81 mg, Oral, Daily, 0 Refill(s) Start Date: 01/03/14 Status: OrderedCo-Q10 Oral, 0 Refill(s) Start Date: 01/08/14 Status: Ordereddigoxin 125 mcg (0.125 mg) oral tablet 1 tabs, Oral, Daily, # 90 tabs, 3 Refill(s), Pharmacy: [facility], 1 tabs Oral Daily Start Date: 11/24/14 Status: OrderedFish Oil Oral, 0 Refill(s) Start Date: 01/08/14 Status: Orderedlovastatin 40 mg oral tablet 1 1/2 tabs, Oral, Daily, # 135 tabs, 3 Refill(s), Pharmacy: [facility], 1 1/2 tabs Oral Daily Start Date: 11/24/14 Status: Orderedmagnesium oxide Oral, 0 Refill(s) Start Date: 01/08/14 Status: Orderedomeprazole 20 mg oral delayed release capsule 1 caps, Oral, Daily, # 90 caps, 0 Refill(s), Pharmacy: [id number], 1 caps Oral Daily Start Date: 11/11/14 Status: OrderedOsteo Bi-Flex 0 Refill(s) Start Date: 01/08/14 Status: OrderedRythmol 150 mg oral tablet See Instructions, TAKE 1 TABLET EVERY 8 HOURS, # 270 tabs, 3 Refill(s), eRx: [facility], TAKE 1 TABLET EVERY 8 HOURS Start Date: 03/30/15 Status: Orderedtamsulosin 0.4 mg oral capsule 1 caps, Oral, Daily, # 90 caps, 3 Refill(s), Pharmacy: [facility], 1 caps Oral Daily Start Date: [...] Right knee surgery x26 Tonsillectomy Vasectomy 1hyperplastic pgibr1KDQO CLVA4pijqmtqwvjd kyyws7miivo0RUCIJNLMNJ HFOCLIEY1QIANI KNEE SURGERY Social History Social History Type [...]
[2017-06-16 14:53] VITALS: BMI 25.6
[2017-06-16] MEDS ORDERED: NITROGLYCERIN 0.4 MG SUBLINGUAL TABLET SL PRN (15:58)
[2017-06-16] MEDS ORDERED: MAG-AL + SIM ORAL LIQUID 30ml PO PRN (15:58)
[2017-06-16] MEDS ORDERED: HYDROCODONE/APAP 5mg/325mg TABLET PO PRN (16:00)
[2017-06-16] MEDS: ACETAMINOPHEN 325 MG TABLET PO SCH ×2 (16:43→21:20)
[2017-06-16] MEDS: CARVEDILOL 3.125 MG TABLET PO SCH (16:43)
[2017-06-16] MEDS: PANTOPRAZOLE 40 MG TABLET PO SCH (16:44)
[2017-06-16] MEDS: PROPAFENONE 150 MG TABLET PO SCH (16:45)
[2017-06-16] MEDS: APIXABAN 5 MG TABLET PO SCH (21:19)
[2017-06-16] MEDS: ATORVASTATIN 40 MG TABLET PO SCH (21:19)
[2017-06-16] MEDS: ASPIRIN *EC* 81 MG TABLET PO SCH (21:19)
[2017-06-16] MEDS: TAMSULOSIN 0.4 MG CAPSULE PO SCH (21:19)
[2017-06-17] MEDS: PROPAFENONE 150 MG TABLET PO SCH ×3 (00:50→16:43)
[2017-06-17] MEDS: ACETAMINOPHEN 325 MG TABLET PO SCH ×3 (00:55→08:29)
[2017-06-17] MEDS: PANTOPRAZOLE 40 MG TABLET PO SCH ×2 (05:36→16:43)
[2017-06-17] MEDS: MAGNESIUM OXIDE 400 MG TABLET PO SCH (08:30)
[2017-06-17] MEDS: APIXABAN 5 MG TABLET PO SCH ×2 (08:30→20:38)
[2017-06-17] MEDS: GLUCOSAMINE/CHONDROITIN 500 MG/400 MG CAPSULE PO SCH (08:30)
[2017-06-17] MEDS: ASPIRIN *EC* 81 MG TABLET PO SCH ×2 (08:30→20:38)
[2017-06-17] MEDS: OMEGA-3 ACID ESTERS 1 GM CAPSULE PO SCH (08:30)
[2017-06-17] MEDS: CARVEDILOL 3.125 MG TABLET PO SCH ×2 (08:30→16:42)
[2017-06-17] MEDS: DIGOXIN 250 MCG TABLET PO SCH (08:31)
[2017-06-17] MEDS: TRAMADOL 50 MG TABLET PO PRN (08:34)
--- NOTE | 2017-06-17 10:44 | IRU History & Physical Report ---
[facility] Date: Chief complaint: My knee hurts HPI: Mr. Pearce is an 86-year-old white male referred by Dr. Betito Eastman in [place]. His primary care doctor is Dr. Cr Meredith. He lives in [facility] with his . He did have a progressive problem with both knees hurting secondary to osteoarthritis. The patient underwent left total knee replacement in [place] on 06/11/2017 at [facility]. He tolerated the procedure well but has had significant pain in the knee since that time. In addition, his sodium dropped rather rapidly from 132 down to 129. Lowest value that I see recorded is 126 recorded on 06/16/2017. Referring hospital had placed him on a free water limitation but could have as much "Power Aid" etc. as he wished. The patient does not recall having a history of hyponatremia prior to this. He states that he is not a compulsive water drinker at home prior to this. 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 I reviewed the transfer records in detail and do not find record of urine spot sodium. To my knowledge he has not been on any diuretics. He was on no diuretics at home. He has not had evidence of VIDEOGAME TESTER complications from his hyponatremia. The patient did experience acute blood loss anemia in the postoperative timeframe. On 06/12/2017 his hemoglobin was 10.8. It is now down to 9.2. He has had no further evidence of bleeding except that expected from the surgery. He denies any lightheadedness. He does have a rather complicated history of cardiac issues. He has paroxysmal atrial fibrillation. He is on Rythmol in this regard. His ward secretary is Dr. Rodriguez. As nearly as I can determine in [place] his rhythm was sinus. The patient states he does not know when he was in atrial fibrillation the last time. Denies any actual palpitations. Does have history of documented paroxysmal atrial fibrillation remotely and is on Eliquis. In addition, he has a history of acute ST segment elevation myocardial infraction in May 2016. Intervention was undertaken with one balloon and 2 stents being placed at that time. Patient states that he does not have any ongoing pain nor shortness of breath at the present time. At home, he lives with his . He was using a cane off and on when he was out and about prior to the surgery. He did not use any other assistive device. They have 2 steps to get in and out of the home. Level of functioning prior to the knee surgery is as follows: He was independent for eating, grooming, bathing, upper and lower body dressing, toileting, toilet transfers, bed/chair/wheelchair transfers, and walking. He was independent with stairs. He was able to walk without assistive device at home. Current level of functioning since the surgery is as follows: He is supervision level for grooming, upper body dressing. He is moderate assistance for lower body dressing and minimal assistance for toileting. He has moderate assistance for bed/chair/wheelchair transfers and maximum assistance for walking. He is using a rolling walker able to ambulate only 22 feet. He was not tested for stairs. The following medical conditions are noted and require active monitoring and/or management: 1. Acute hyponatremia. 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 If it continues to fall he is at risk of lightheadedness and confusion and would be an increased fall risk. We will monitor this carefully and evaluate a urine spot sodium as well as restrict free water. 2. Acute blood loss anemia: Hemoglobin is down to 9.2. He does not have other evidence of blood loss apart from the surgery. He is at risk for further bleeding as well as wound infection in this regard and this will be monitored carefully. 3. Benign essential hypertension: He is at risk for uncontrolled hypertension in view of the significant pain which she rates as a "10 out of 10" in intensity. 4. Postoperative pain in the left knee which he describes as 10 out of 10. The following therapies will be needed: 1. Physical therapy: for transfers and ambulation and stairs. 2. Occupational therapy: for ADL's and transfers. 3. Medical management: for the above conditions. 4. 24 hour Rehabilitation Nursing to monitor and address the following: Monitoring vital signs and evidence of rhythm decompensation. In addition, he will need to be monitored for VIDEOGAME TESTER competitions from his hyponatremia and limit his oral intake of free water. [facility] Patient Stated Medical History Cataracts Yes Cardiac Arrhythmia Yes: a-fib Hypertension Yes: on coreg Myocardial Infarction Yes: about 2 years ago Constipation No Gastroesophageal Reflux Yes Disease Hx Incontinence No Osteoarthritis Yes Blood Transfusions Yes: 2017 Clinic Medical History Coronary artery disease (Chronic Medical) Atrial fibrillation (Resolved Medical) Aortic stenosis (Chronic Medical) Hypercholesterolemia (Chronic Medical) Hypertension (Chronic Medical) BPH (benign prostatic hyperplasia) (Chronic Medical) GERD (gastroesophageal reflux disease) (Chronic Medical) Postoperative anemia (Acute Medical) Medical History Updates: 1. Adenomatous polyp on colonoscopy. 2. Aortic stenosis with aortic valve area estimated at 1.1 cm. 3. GERD. 4. Paroxysmal atrial fibrillation. 5. Osteoarthritis of right knee Surgical History: 1. Heart catheterization May 2016 with placement of 2 stents. 2. Colonoscopy with removal of adenomatous polyp. 3. Bilateral ptosis surgery. 4. Bilateral inguinal hernia repair. 5. Circumcision. 6. Right knee arthroscopy. 7. Previous right total knee replacement. 8. Current left total knee replacement. 9. Tonsillectomy. 10. Vasectomy. 11. EGD. 12. Bilateral cataract procedure Family History: Father age 92 of congestive heart failure. Mother age 94. She does have history of colon cancer. One brother has history of coronary artery disease. - Social History Smoking status: Former smoker (states that he started to smoke at age 27 only a minimal amount and stopped around age 32. Transfer records indicate he stopped at age 54. I confirmed with him that he stopped at age 32 except for very rare occasions since then.) Substance use type: does not use Alcohol intake: never Alcohol intake frequency: does not drink Housing: house Household members: spouse Current occupational status: retired Current residence: Apartment/Private Home Social history: Patient is retired from working for [employer] and subsequently [employer]. 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 He states that he lives at home with his . Review of Systems - Constitutional Constitutional: Present: weight loss (reports he has lost some 10 pounds with the current total knee replacement. His appetite has been good however.). Absent: anorexia, chills, fatigue, fever(s), headache(s), lethargy, malaise, night sweats, weakness, weight gain - EENMT Eyes: Absent: blurry vision, change in vision, diplopia Mouth/Throat: Absent: changes in swallowing, painful swallowing, change in taste , bleeding gums, change in voice - Cardiovascular Cardiovascular: Absent: chest pain, palpitations, syncope, dyspnea on exertion, orthopnea, edema, cyanosis, heart murmur Rhythm: Present: regular rhythm Vascular: Absent: intermittent claudication, pedal edema, unilateral swelling - Respiratory Respiratory: Present: cough (he states that he is getting over a cold.). Absent : dyspnea, hemoptysis, dyspnea on exertion, wheezing, pain on inspiration, chest congestion, excessive phlegm production - Gastrointestinal Gastrointestinal: Present: constipation (he reports he has had some recent constipation but that has fairly well resolved.), dyspepsia (has occasional reflux symptoms.). Absent: abdominal pain, change in bowel habits, diarrhea, dysphagia, early satiety, hematochezia, melena, nausea, vomiting - Musculoskeletal Musculoskeletal: Present: myalgias. Absent: abnormal gait, arthralgias, back pain, joint swelling, limited range of motion, muscle weakness - Integumentary/Breasts Integumentary: Absent: alopecia, erythema, lesions, pruritus, rash, jaundice - Neurological Neurological: Absent: abnormal gait, abnormal movements, abnormal speech, confusion, convulsions, dizziness, focal weakness, frequent falls, headache(s), loss of vision, memory loss, numbness, paresthesias, tremor(s) - Psychiatric Psychiatric: Absent: abnormal sleep pattern, anxiety, depression - Endocrine Endocrine: Absent: cold intolerance, flushing, heat intolerance, palpitations - Hematologic/Lymphatic Hematologic/Lymphatic: Absent: easy bleeding, easy bruising, lymphadenopathy - Allergic/Immunologic Allergic/Immunologic: Absent: urticaria Medications Home Medications Medication Instructions Recorded Confirmed Type Acetaminophen 650 mg PO Q4H 06/16/17 06/16/17 History Apixaban [Eliquis] 5 mg PO BID 06/16/17 06/16/17 History Aspirin [Aspirin EC] 81 mg PO BID 06/16/17 06/16/17 History Atorvastatin [Lipitor] 1 tab PO HS 06/16/17 06/16/17 History Carvedilol [Coreg] 1 tab PO BIDWM 06/16/17 06/16/17 History Digoxin 2 tab PO DAILY 06/16/17 06/16/17 History Glucosamine/Chondroitin [Osteo 1 cap PO DAILY 06/16/17 06/16/17 History Bi-Flex] Hydrocodone/Acetaminophen 1 tab PO Q4H PRN 06/16/17 06/16/17 History [Hydrocodon-Acetaminophen 5-325] Mag-Al + Sim Oral Liq [Maalox Plus] 30 ml PO Q6H PRN 06/16/17 06/16/17 History Magnesium Oxide [Magnesium] 1 tab PO DAILY 06/16/17 06/16/17 History Nitroglycerin 0.4 mg SL Q5M PRN 06/16/17 06/16/17 History [place]-3 Fatty Acids [[place]-3] 1,000 mg PO DAILY 06/16/17 06/16/17 History Pantoprazole Sodium [Protonix] 1 tab PO ACBID 06/16/17 06/16/17 History Propafenone [Rythmol] 1.5 tab PO Q8H 06/16/17 06/16/17 History Tamsulosin [Flomax] 0.4 mg PO HS 06/16/17 06/16/17 History Tramadol [Ultram] 50 mg PO Q4HR PRN 06/16/17 06/16/17 History Allergies Allergy/AdvReac Type Severity Reaction Status Date / Time No Known Allergies Allergy Unknown Verified 06/16/17 14:40 Results IRU - Labs Labs: I reviewed outside records extensively. Exam Vital Signs: Temperature 97.8 F 06/17/17 07:26 Pulse Rate 72 06/17/17 08:43 Respiratory Rate 20 06/17/17 07:26 Blood Pressure 107/77 06/17/17 07:26 Pulse Oximetry 96 06/17/17 07:26 Height/Weight/BMI: Height 1.7 m Weight 74.3 kg Body Mass Index 25.6 - Constitutional Present: moderate distress, well nourished, well developed, average body habitus , cooperative - Routine HEENT Exam Head: Present: normocephalic, atraumatic. Absent: cushingoid faces, abrasion, laceration, hematoma Eye: Present: EOMI, PERRL. Absent: conjunctival icterus, scleral injection, periorbital swelling, nystagmus ENT: Present: mucous membranes moist, oropharynx clear - Routine Neck Exam Present: supple, full ROM, trachea midline. Absent: lymphadenopathy, thyromegaly, tenderness, swelling - Routine Chest/Breast/Axilla Exam Chest wall: Absent: tenderness, mass Axillae: Absent: lymphadenopathy, mass - Routine Respiratory Exam Present: CTA bilaterally. Absent: accessory muscle use, decreased breath sounds , prolonged expiratory phase, rales, respiratory distress, rhonchi, stridor, wheezes, crackles, distant breath sounds - Routine Cardiovascular Exam Present: RRR, S1, S2, murmur (has a systolic murmur loudest along left sternal border. Reported history of aortic stenosis however.). Absent: gallop, S3, S4, click, irregular rhythm - Routine Abdominal Exam Present: soft, normoactive bowel sounds, non distended, non tender. Absent: rebound, guarding, firm, rigid, organomegaly, mass, hernia, wound - Routine Extremities Exam Present: no edema, non tender, pulses intact, normal capillary refill. Absent: cyanosis, clubbing - Routine Back/Spine/Pelvis Exam Back/Spine: Present: full ROM. Absent: scoliosis, kyphosis - Routine Skin Exam Present: intact, dry, warm, wounds (I inspected the left knee wound. There is bruising but no evidence of infection.). Absent: cyanosis, erythema, pallor, mottling, petechiae, urticaria, lesions, jaundice - Routine Neurological Exam Present: alert, oriented X3, CN II-XII intact, sensory deficit, motor deficit, moving all extremities, normal speech - Routine Psychiatric Exam Present: normal affect, normal thought process, cooperative, good insight, good judgment. Absent: depressed, anxious Sepsis Assessment - Evaluation Confirmed Suspected Infection: No SIRS Criteria: none IRU A/P (1) Status post total knee replacement, left Current visit: Yes Status: Acute The wound appears to be bruised but not infected. This will be monitored carefully. He is having quite a bit of pain in the knee which will be treated appropriately. (2) Hyponatremia Current visit: Yes Status: Acute Has a recent history of hyponatremia of uncertain cause. We will check a urine spot sodium. In addition we will limit free water. Typically this is due to SIADH from his pain but we will rule out other causes if needed. (3) Acute blood loss anemia Current visit: Yes Status: Acute His hemoglobin is around 9 g percent. He denies any lightheadedness. He will be observed for further blood loss. (4) Hypertension Qualifiers: Hypertension type: essential hypertension Qualified Code(s): I10 - Essential (primary) hypertension Current visit: No Status: Chronic His blood pressure will be monitored carefully in view of the acute blood loss anemia, hyponatremia, history of atrial fibrillation and his pain. He is at risk for further hypertension or a drop in blood pressure. (5) Paroxysmal atrial fibrillation Current visit: Yes Status: Chronic He appears to be in a regular rhythm at present. According to transfer records he was in sinus mechanism in [place] as well. However he is at risk for recurrence of his atrial fibrillation and this will be monitored carefully. DVT Prophylaxis: Eliquis Resuscitation Status: Full Code - Course Hospital Course: Jeb Marte MD: - Interventions to Obtain Goals PT Treatment Plan: Balance/Proprioception, Functional Activities, Gait Training , Patient/Family Education, Therapeutic Exercise OT Treatment Plan: ADL (Basic Care), Balance Training, IADL, Ther. Exercise for ADL, UE Functional Training Goals Progress/Modifications: Because of his multiple medical problems and in particular in view of the recent hyponatremia and acute blood loss anemia, he requires inpatient rehabilitation. An individualized program of occupational therapy and physical therapy along with 24 hour rehabilitation nursing and medical supervision will be designed for this patient.
--- NOTE | 2017-06-17 11:01 | IRU 24Hr Post Admit Eval ---
24 Hr Post Admission Physical - Relevant Changes Relevant Changes: No Reviewed: I have reviewed the patient's information and concur with the finding and results of the pre-admission screen. Certification: I certify the patient for rehabilitation. - Patient Condition (1) Status post total knee replacement, left Status: Acute Code(s): Z96.652 - Presence of left artificial knee joint Classification: Present on IRF Admission, IRF Tx That Should Address Diagnosis, Diagnosis Requiring Medical Follow Up (2) Hyponatremia Status: Acute Code(s): E87.1 - Hypo-osmolality and hyponatremia Classification: Present on IRF Admission, IRF Tx That Should Address Diagnosis, Diagnosis Requiring Medical Follow Up (3) Acute blood loss anemia Status: Acute Code(s): D62 - Acute posthemorrhagic anemia Classification: Present on IRF Admission, IRF Tx That Should Address Diagnosis, Diagnosis Requiring Medical Follow Up (4) Hypertension Status: Chronic Qualifiers: Hypertension type: essential hypertension Qualified Code(s): I10 - Essential (primary) hypertension Code(s): I10 - Essential (primary) hypertension Classification: Present on IRF Admission, IRF Tx That Should Address Diagnosis, Diagnosis Requiring Medical Follow Up (5) Paroxysmal atrial fibrillation Status: Chronic Code(s): I48.0 - Paroxysmal atrial fibrillation Classification: Diagnosis Requiring Medical Follow Up - Prior Functional Status Lives With: Spouse Residence Type: Apartment/Private Home Assitive Devices: Straight Cane Prior Functional Status: Used assistive device - Current Functional Status Current Level of Function: Current level of functioning since the surgery is as follows: He is supervision level for grooming, upper body dressing. He is moderate assistance for lower body dressing and minimal assistance for toileting. He has moderate assistance for bed/chair/wheelchair transfers and maximum assistance for walking. He is using a rolling walker able to ambulate only 22 feet. He was not tested for stairs. Failed Alternative Therapy: Arrived from Acute Care Patient Requirements: The patient requires oversight by rehabilitation physician to manage their rehabilitation treatment plan and multidisciplinary approach to care that can only be provided in an IRF and requires a multidisciplinary approach to care, provided by professional PTs, OTs, STs, dieticians, RTs, rehabilitation nurses and is not available in lesser levels of care. Limitations Req: Mobility Impairment, ADL Impairment, Limited Mobility Physical Therapy Minutes: 90 Occupational Therapy Minutes: 90 Therapy: The patient is to receive therapy at least 5 days a week. ROM Deficit: Left Lower Extremity - Complications/Comorbidities Impact on Functional Outcomes: His severe pain as well as hyponatremia may will impact his functional outcomes. Barriers to Discharge: Weakness, Endurance, Pain Control, Medical Limitation - Plan to Avoid Complications Plan to Avoid Complications: The patient cannot receive this care in a lesser intensive setting such as Half-Way or Outpatient Therapy due to the patient requiring the following : 24 rehabilitation nursing monitoring of wound for infection, BIOLOGY LABORATORY ASSISTANT changes related to hyponatremia, monitoring of heart rhythm in view of his atrial fibrillation history and monitoring of his vital signs including and especially blood pressure and pulse. .
[2017-06-17] MEDS: ACETAMINOPHEN 325 MG TABLET PO PRN ×2 (12:19→20:38)
--- NOTE | 2017-06-17 13:37 | Consult Note ---
<Miracle Howell - Last Filed: 06/17/17 13:29> Consult Information - Data of Consult Consult date: 06/17/17 Requesting Physician: Jeb Marte MD Primary Care Provider: Cr Meredith MD Family Provider: Cr Meredith MD - Consult Narrative Reason for consult: Medical management, anemia History of present illness: Bert Pearce is a very pleasant 86-year-old male patient of Dr. Betito Eastman and Dr. Cr Meredith. He reports that he underwent an elective total left knee replacement by Dr. Eastman on 06/11/17 in [place] due to progressive pain an debility secondary to osteoarthritis. She states that he surgery went well but since has had significant pain to his left knee. Review of his medical records from [facility] during his post-op recovery indicated that he struggled with hyponatremia with his sodium decreasing as low as 126 on . He was placed on a free water limitation but denies drinking significant amounts of water to begin with. He has not history of diuretic use while in the hospital or at home. In light of his significant pain and hyponatremia, his symptoms are concerning for undetected SIADH. He denies any headache, confusion, decreased level of consciousness or seizures. He also experience acute blood loss anemia with his initial hemoglobin 10.8 on 06/12/17. He admits to requiring 2 unit blood transfusion following his RIGHT knee replacement earlier this year. Currently his hemoglobin in 9.0 and he denies any symptoms including no chest pain, shortness of breath, dizziness, lightheadedness or syncope. He denies any signs of additional bleeding including no blood in his stools. He is on Eliquis chronically in light of his paroxysmal a-fib which he follows with Dr. Rodriguez and takes rythmol. Prior to his surgery, he reports that he lived at home with his and was able to complete ADLs independently. He was transferred to [facility] and accepted to IRU for continuation of his therapies for strengthening and improvement in his functional abilities. [facility] Patient Stated Medical History CAD with history of MS. Paroxysmal atrial fibrillation. Hypertension. Hypercholesterolemia. Aortic stenosis with aortic valve area estimated at 1.1cm. BPH. GERD. History of post-op anemia requiring blood transfusion - 2017. Cataracts. Constipation. Osteoarthritis. Surgical History: 1. Heart catheterization May 2016 with placement of 2 stents. 2. Colonoscopy with removal of adenomatous polyp. 3. Bilateral ptosis surgery. 4. Bilateral inguinal hernia repair. 5. Circumcision. 6. Right knee arthroscopy. 7. Previous right total knee replacement-2016. 8. Current left total knee replacement-2016. 9. Tonsillectomy. 10. Vasectomy. 11. EGD. 12. Bilateral cataract procedure. Family History: Father - , age 92, CHF. Mother - , age 94, colon cancer. Brother - CAD. - Social History Smoking status: Former smoker Substance use type: does not use Alcohol intake frequency: does not drink Housing: house Household members: spouse Current occupational status: retired Does patient use chewing tobacco?: No Current residence: Apartment/Private Home Social history: PCP - Dr. Meredith. Ortho - Dr. Eastman. Cardio - Dr. Rodriguez. Review of Systems All systems PM: 10-point ROS was reviewed, no additional remarkable complaints except - Constitutional Constitutional: Present: weakness. Absent: chills, fatigue, fever(s), headache( s), malaise - EENMT Eyes: Absent: change in vision, diplopia, pain, photophobia Ears: Absent: ear pain Balance: Absent: falling to one side Nose: Absent: nosebleeds Mouth/Throat: Absent: sore throat, changes in swallowing - Cardiovascular Cardiovascular: Present: edema. Absent: chest pain, palpitations, syncope Vascular: Present: pedal edema - Respiratory Respiratory: Absent: cough, dyspnea, hemoptysis, wheezing - Gastrointestinal Gastrointestinal: Present: constipation. Absent: abdominal pain, diarrhea, nausea, vomiting - Genitourinary Genitourinary: Absent: dysuria, flank pain, hematuria, urinary incontinence - Musculoskeletal Musculoskeletal: Present: limited range of motion (left knee). Absent: back pain - Integumentary/Breasts Integumentary: Absent: erythema, rash - Neurological Neurological: Present: weakness. Absent: confusion, convulsions, dizziness, focal weakness, memory loss, numbness - Psychiatric Psychiatric: Absent: anxiety, depression - Endocrine Endocrine: Absent: flushing, palpitations - Hematologic/Lymphatic Hematologic/Lymphatic: Present: easy bruising - Allergic/Immunologic Allergic/Immunologic: Absent: seasonal rhinorrhea Medications Home Medications Medication Instructions Recorded Confirmed Type Acetaminophen 650 mg PO Q4H 06/16/17 06/16/17 History Apixaban [Eliquis] 5 mg PO BID 06/16/17 06/16/17 History Aspirin [Aspirin EC] 81 mg PO BID 06/16/17 06/16/17 History Atorvastatin [Lipitor] 1 tab PO HS 06/16/17 06/16/17 History Carvedilol [Coreg] 1 tab PO BIDWM 06/16/17 06/16/17 History Digoxin 2 tab PO DAILY 06/16/17 06/16/17 History Glucosamine/Chondroitin [Osteo 1 cap PO DAILY 06/16/17 06/16/17 History Bi-Flex] Hydrocodone/Acetaminophen 1 tab PO Q4H PRN 06/16/17 06/16/17 History [Hydrocodon-Acetaminophen 5-325] Mag-Al + Sim Oral Liq [Maalox Plus] 30 ml PO Q6H PRN 06/16/17 06/16/17 History Magnesium Oxide [Magnesium] 1 tab PO DAILY 06/16/17 06/16/17 History Nitroglycerin 0.4 mg SL Q5M PRN 06/16/17 06/16/17 History [place]-3 Fatty Acids [[place]-3] 1,000 mg PO DAILY 06/16/17 06/16/17 History Pantoprazole Sodium [Protonix] 1 tab PO ACBID 06/16/17 06/16/17 History Propafenone [Rythmol] 1.5 tab PO Q8H 06/16/17 06/16/17 History Tamsulosin [Flomax] 0.4 mg PO HS 06/16/17 06/16/17 History Tramadol [Ultram] 50 mg PO Q4HR PRN 06/16/17 06/16/17 History Allergies Allergy/AdvReac Type Severity Reaction Status Date / Time No Known Allergies Allergy Unknown Verified 06/16/17 14:40 Exam Vital Signs: Temperature 97.8 F 06/17/17 07:26 Pulse Rate 72 06/17/17 08:43 Respiratory Rate 20 06/17/17 07:26 Blood Pressure 107/77 06/17/17 07:26 Pulse Oximetry 96 06/17/17 07:26 Height/Weight/BMI: Height 5 ft 7 in Weight 163 lb 12.855 oz Body Mass Index 25.6 - Constitutional Present: no acute distress, well nourished, well developed, cooperative - Routine HEENT Exam Head: Present: normocephalic, atraumatic Eye: Present: PERRL. Absent: conjunctival icterus ENT: Present: mucous membranes moist, dentition normal - Routine Neck Exam Present: supple, full ROM, trachea midline - Routine Chest/Breast/Axilla Exam Chest wall: Absent: pacemaker - Routine Respiratory Exam Present: CTA bilaterally. Absent: rhonchi, stridor, wheezes, crackles - Routine Cardiovascular Exam Present: RRR, S1, S2, murmur - Routine Abdominal Exam Present: soft, normoactive bowel sounds, non distended, non tender - Routine Extremities Exam Present: edema (left lower extremity 2+) - Routine Back/Spine/Pelvis Exam Back/Spine: Present: full ROM - Routine Skin Exam Present: dry, warm. Absent: jaundice Comments: incision noted to right knee without warmth or erythema; dressing clean, dry and intact. - Routine Neurological Exam Present: alert, oriented X3, moving all extremities, hearing grossly intact, normal speech. Absent: facial asymmetry - Routine Psychiatric Exam Present: cooperative, good insight, good judgment Results - Labs CBC & Chem 7: 06/17/17 04:41 06/17/17 04:41 Assessment and Plan (1) Status post total knee replacement, left Current visit: Yes Status: Acute (2) Acute blood loss anemia Current visit: Yes Status: Acute Assessment and Plan: Assessment: S/P left knee replacement, 06/11/17, Dr. Eastman. Post-op, blood loss anemia, acute, present on admission. Hyponatremia, prior to arrival, resolved on admission. CAD with history of MS. Paroxysmal atrial fibrillation. Hypertension. Hypercholesterolemia. Aortic stenosis with aortic valve area estimated at 1.1cm. BPH. GERD. Constipation. Osteoarthritis. Plan - 06/17/17 (Consult). Agree with admission to IRU for continued therapies to improve strength and functional abilities. Continue to provide safe and supportive environment. Monitor surgical incision to left knee for signs of infection; keep bandage clean, dry and intact. Blood loss anemia noted on admission with hemoglobin at 9.0. Monitor closely. History of blood transfusion x 2 units following prior knee replacement in spring 2016. Currently patient is asymptomatic. Will recheck CBC on 06/19/17 and continue to monitor periodically. Hyponatremia following surgery, resolved prior to admission. Current sodium at 136. Maintain 1500cc fluid restriction and monitor electrolytes closely. Concern for SIADH given patient's hyponatremia and increased pain. Will obtain UA and UA sodium for further evaluation. Continue on home medications. Monitor blood pressure closely. Monitor closely for signs of urinary retention given history of BPH. Encourage incentive spirometry for pulmonary toileting. SCDs for DVT prophylaxis. Appreciate the opportunity to participate in Mr. Pearce's care. Upon discharge , his care will be returned to his PCP , Dr. Meredith. DVT Prophylaxis: SCD's GI Prophylaxis: Protonix Resuscitation Status: Full Code - Time spent with patient Time with patient PN: 70 minutes Hospital Course Summary Disclaimer: The visit summary below is not to be considered part of the above Progress Note. Hospital Course: Assessment: S/P left knee replacement, 06/11/17, Dr. Eastman. Post-op, blood loss anemia, acute, present on admission. Hyponatremia, prior to arrival, resolved on admission. CAD with history of MS. Paroxysmal atrial fibrillation. Hypertension. Hypercholesterolemia. Aortic stenosis with aortic valve area estimated at 1.1cm. BPH. GERD. Constipation. Osteoarthritis. Plan - 06/17/17 (Consult). Agree with admission to IRU for continued therapies to improve strength and functional abilities. Continue to provide safe and supportive environment. Monitor surgical incision to left knee for signs of infection; keep bandage clean, dry and intact. Blood loss anemia noted on admission with hemoglobin at 9.0. Monitor closely. History of blood transfusion x 2 units following prior knee replacement in spring 2016. Currently patient is asymptomatic. Will recheck CBC on 06/19/17 and continue to monitor periodically. Hyponatremia following surgery, resolved prior to admission. Current sodium at 136. Maintain 1500cc fluid restriction and monitor electrolytes closely. Concern for SIADH given patient's hyponatremia and increased pain. Will obtain UA and UA sodium for further evaluation. Continue on home medications. Monitor blood pressure closely. Monitor closely for signs of urinary retention given history of BPH. Encourage incentive spirometry for pulmonary toileting. SCDs for DVT prophylaxis. Appreciate the opportunity to participate in Mr. Pearce's care. Upon discharge , his care will be returned to his PCP , Dr. Meredith. <Olman Herrera - Last Filed: 06/17/17 19:54> Consult Information - Data of Consult Requesting Physician: Jeb Marte MD Primary Care Provider: Cr Meredith MD Family Provider: Cr Meredith MD [facility] Patient Stated Medical History Cataracts Yes Cardiac Arrhythmia Yes: a-fib Hypertension Yes: on coreg Myocardial Infarction Yes: about 2 years ago Constipation No Gastroesophageal Reflux Yes Disease Hx Incontinence No Osteoarthritis Yes Blood Transfusions Yes: 2017 Clinic Medical History Coronary artery disease (Chronic Medical) Atrial fibrillation (Resolved Medical) Aortic stenosis (Chronic Medical) Hypercholesterolemia (Chronic Medical) Hypertension (Chronic Medical) BPH (benign prostatic hyperplasia) (Chronic Medical) GERD (gastroesophageal reflux disease) (Chronic Medical) Postoperative anemia (Acute Medical) Hyponatremia (Acute Medical) Acute blood loss anemia (Acute Medical) Paroxysmal atrial fibrillation (Chronic Medical) Exam Vital Signs: Temperature 97.8 F 06/17/17 16:00 Pulse Rate 76 06/17/17 16:43 Respiratory Rate 18 06/17/17 16:00 Blood Pressure 113/61 06/17/17 16:00 Pulse Oximetry 95 06/17/17 16:00 Height/Weight/BMI: Height 1.7 m Weight 74.3 kg Body Mass Index 25.6 Results - Labs CBC & Chem 7: 06/17/17 04:41 06/17/17 04:41 Assessment and Plan (1) Status post total knee replacement, left Current visit: Yes Status: Acute (2) Acute blood loss anemia Current visit: Yes Status: Acute Assessment and Plan: Assessment: S/P left knee replacement, 06/11/17, Dr. Eastman. Post-op, blood loss anemia, acute, present on admission. Hyponatremia, prior to arrival, resolved on admission. CAD with history of MS. Paroxysmal atrial fibrillation. Hypertension. Hypercholesterolemia. Aortic stenosis with aortic valve area estimated at 1.1cm. BPH. GERD. Constipation. Osteoarthritis. Have independently interviewed & examined pt. Chart reviewed. Case discussed with my PA. Above care plan developed with my supervision; agree with above. Rough night-had pain keeping him from sleeping. Also, urinating very frequently. Therapy today was hard work. Breathing well. No chest pain. Lungs: clear CV: regular with CAPRICE AB: soft nt/nd +BS MSE: awake alert appropriate GEN: looks about 20 years younger than his age. Plan: Agree with admission to IRU to maximize functional status. Encourage therapy. Likely need to remove fluid restriction soon-suspect narcotic medications playing a role. Monitor blood counts-will check Iron and B12 levels. Encourage pulmonary toilet. Medically stable for IRU floor activities. Hospital Course Summary Disclaimer: The visit summary below is not to be considered part of the above Progress Note.
[2017-06-17] MEDS: ATORVASTATIN 40 MG TABLET PO SCH (20:38)
[2017-06-17] MEDS: TAMSULOSIN 0.4 MG CAPSULE PO SCH (20:38)
[2017-06-18] MEDS: PROPAFENONE 150 MG TABLET PO SCH ×3 (00:08→19:03)
[2017-06-18] MEDS: TRAMADOL 50 MG TABLET PO PRN ×2 (05:51→10:37)
[2017-06-18] MEDS: PANTOPRAZOLE 40 MG TABLET PO SCH ×2 (05:51→19:03)
[2017-06-18] MEDS: CARVEDILOL 3.125 MG TABLET PO SCH ×2 (08:14→19:03)
[2017-06-18] MEDS: DIGOXIN 250 MCG TABLET PO SCH (08:17)
[2017-06-18] MEDS: APIXABAN 5 MG TABLET PO SCH ×2 (08:17→22:11)
[2017-06-18] MEDS: GLUCOSAMINE/CHONDROITIN 500 MG/400 MG CAPSULE PO SCH (08:17)
[2017-06-18] MEDS: MAGNESIUM OXIDE 400 MG TABLET PO SCH (08:17)
[2017-06-18] MEDS: OMEGA-3 ACID ESTERS 1 GM CAPSULE PO SCH (08:17)
[2017-06-18] MEDS: ASPIRIN *EC* 81 MG TABLET PO SCH ×2 (08:18→22:11)
--- NOTE | 2017-06-18 11:02 | IRU Progress Note ---
- Subjective/Serverity of Illness Mr. Pearce continues to complain of significant discomfort in the left knee as anticipated. He would like to use some of his home Aspercreme. We will improve this but not on the wound itself. He can use it on the side where he is hurting. He does have some edema in the left extremity as anticipated as well. Has been using his incentive spirometer even though his lungs sound fairly clear at present. His appetite is adequate. Bowels are moving. With regard to his sodium, it is now back to normal at 136. Hemoglobin is stable although low at 9 g percent. Appreciate input of hospitalists. A urine spot sodium is elevated at 110 although not certain of this is significantly abnormal as it depends on oral intake. Had it been elevated in the face of hyponatremia it would have more likely implied SIADH. Update on medical problems we are actively managing and monitorin. Acute hyponatremia. As noted, urine spot sodium is 110. His sodium has now normalized. We will recheck this in a couple of days however. 2. Acute blood loss anemia: His hemoglobin has remained stable although low. No evidence of ongoing bleeding. Likely this is related to the surgery itself. We will monitor carefully. Denies lightheadedness. 3. Benign essential hypertension: Blood pressure running a bit high at over 140. We will monitor this however. 4. Postoperative pain in the left knee which he describes as 10 out of 10. Continues to complain of significant pain in the left knee as anticipated. We will approve the use of Aspercreme on the sides of the knee but not on the incision. Exam Vital Signs: Temperature 97.9 F 06/18/17 08:00 Pulse Rate 78 06/18/17 08:19 Respiratory Rate 14 06/18/17 08:00 Blood Pressure 144/71 H 06/18/17 08:00 Pulse Oximetry 97 06/18/17 08:00 Height/Weight/BMI: Height 1.7 m Weight 74.3 kg Body Mass Index 25.6 Comments: The patient is awake, alert and oriented and in no acute distress. Pupils are equal. The neck is supple. Chest: Clear to auscultation bilaterally. Cor: RR with no gallop, click nor murmur Abd: soft with normo-active bowel sounds. There are no masses, no tenderness and no guarding. Extremities: There is evidence of edema in the left lower extremity. I inspected the wound yesterday and it appeared to be fine without evidence of infection nor inflammation. There was somebody some bruising.. Results IRU - Labs Labs: labs and other notes reviewed IRU A/P (1) Status post total knee replacement, left Current visit: Yes Status: Acute He continues to have significant pain in the knee. No evidence of infection. We will approve the use of Aspercreme on the sides of the knee. (2) Hyponatremia Current visit: Yes Status: Resolved Urine spot sodium 110. Serum sodium has normalized. We will repeat in a couple of days. (3) Acute blood loss anemia Current visit: Yes Status: Acute Hemoglobin stable although low. Repeat down the road. No evidence of ongoing bleeding. (4) Hypertension Qualifiers: Hypertension type: essential hypertension Qualified Code(s): I10 - Essential (primary) hypertension Current visit: No Status: Chronic Blood pressure has been up a bit at over 140. However this is on only one measurement. We will continue to monitor. (5) Paroxysmal atrial fibrillation Current visit: Yes Status: Chronic DVT Prophylaxis: SCD's Resuscitation Status: Full Code - Course Hospital Course: Jeb Marte MD: 06/18/17 11:04 Sodium upon repeat has normalized. Hemoglobin stable although low. Pain is an issue and he would like to use some Aspercreme. - Interventions to Obtain Goals PT Treatment Plan: Balance/Proprioception, Functional Activities, Gait Training , Patient/Family Education, Therapeutic Exercise OT Treatment Plan: ADL (Basic Care), Balance Training, IADL, Ther. Exercise for ADL, UE Functional Training Goals Progress/Modifications: Time spent with patient and on floor reviewing data and documentin min Barriers to dismissal: Pain, swelling, endurance Medical decision-making: Does have edema in the left lower extremity. It is fairly substantial although I'm not certain it is beyond what we would anticipate at this point after the surgery. The knee itself does not appear to be inflamed in terms of infection. We will approve the use of Aspercreme on the sides of the knee but not on the incision itself. At this point there is no evidence of DVT and he remains on Eliquis which would markedly diminished the chances of this being a DVT in the left lower extremity. However we will monitor the edema.
[2017-06-18] MEDS: ACETAMINOPHEN 325 MG TABLET PO PRN (13:14)
[2017-06-18] MEDS: ATORVASTATIN 40 MG TABLET PO SCH (22:11)
[2017-06-18] MEDS: TAMSULOSIN 0.4 MG CAPSULE PO SCH (22:11)
[2017-06-19] MEDS: PROPAFENONE 150 MG TABLET PO SCH ×3 (00:57→17:06)
[2017-06-19] MEDS: ACETAMINOPHEN 325 MG TABLET PO PRN ×2 (00:59→11:12)
[2017-06-19] MEDS: TRAMADOL 50 MG TABLET PO PRN ×5 (01:35→22:48)
[2017-06-19] MEDS: PANTOPRAZOLE 40 MG TABLET PO SCH ×2 (06:23→17:06)
[2017-06-19] MEDS: DIGOXIN 250 MCG TABLET PO SCH (08:47)
[2017-06-19] MEDS: ASPIRIN *EC* 81 MG TABLET PO SCH ×2 (08:47→22:48)
[2017-06-19] MEDS: MAGNESIUM OXIDE 400 MG TABLET PO SCH (08:48)
[2017-06-19] MEDS: OMEGA-3 ACID ESTERS 1 GM CAPSULE PO SCH (08:48)
[2017-06-19] MEDS: APIXABAN 5 MG TABLET PO SCH ×2 (08:48→22:48)
[2017-06-19] MEDS: GLUCOSAMINE/CHONDROITIN 500 MG/400 MG CAPSULE PO SCH (08:49)
[2017-06-19] MEDS: CARVEDILOL 3.125 MG TABLET PO SCH ×2 (08:49→17:06)
--- NOTE | 2017-06-19 10:28 | IRU Progress Note ---
- Subjective/Serverity of Illness Bert continues to complain of significant discomfort in the left knee which was replaced. His was going to bring in some Aspercreme but did not do so. She will do this today. I again advised him not to use this on the wound whatsoever but could use it on the sides area did continues to have some edema in the left lower extremity as anticipated. His bowels are moving. He is using his incentive spirometer. Update on medical problems which we are actively monitoring and managing as follows: 1. Acute hyponatremia. Since being here, his sodium has normalized. He has been placed on a fluid restriction which we could probably liberalize. 2. Acute blood loss anemia: His hemoglobin is roughly the same upon repeat. Iron studies are consistent with anemia of chronic disease although cannot rule out acute blood loss anemia in addition. In fact it is likely he does have acute blood loss anemia in terms of the recent surgery. 3. Benign essential hypertension: His blood pressures are reviewed and have been running a bit high. If these continue we'll need to adjust his medication. 4. Postoperative pain in the left knee: Continues to complain of significant pain in the left knee. will bring in some Aspercreme. Continue current pain management however. Exam Vital Signs: Temperature 97.7 F 06/19/17 08:00 Pulse Rate 82 06/19/17 08:48 Respiratory Rate 16 06/19/17 08:00 Blood Pressure 156/71 H 06/19/17 08:00 Pulse Oximetry 95 06/19/17 08:00 Height/Weight/BMI: Height 1.7 m Weight 74.6 kg Body Mass Index 25.6 Comments: The patient is awake, alert and oriented and in no acute distress. Pupils are equal. The neck is supple. Chest: Clear to auscultation bilaterally. Cor: RR with no gallop, click nor murmur Abd: soft with normo-active bowel sounds. There are no masses, no tenderness and no guarding. Extremities: Left leg does have edema as anticipated. I did not remove the dressing today. When I did look at it, there was no evidence of active infection. Some bruising was present. Results IRU - Labs Labs: Reviewed lab. Repeat sodium is normal. Repeat hemoglobin is stable. Iron studies consistent with anemia of chronic disease although I highly suspect superimposed acute blood loss anemia. IRU A/P (1) Status post total knee replacement, left Current visit: Yes Status: Acute No evidence of inflammation/infection. Does have severe pain in the knee as well as edema as anticipated. Remains on Eliquis and therefore I doubt DVT. We will add topical Aspercreme on the sides of the knee but avoiding the wound. (2) Hyponatremia Current visit: Yes Status: Resolved Hyponatremia appears to be resolved. Remains on fluid restriction which we will liberalize. (3) Acute blood loss anemia Current visit: Yes Status: Acute Repeat hemoglobin is stable. Iron studies are consistent with both anemia of chronic disease and possible acute blood loss. (4) Hypertension Qualifiers: Hypertension type: essential hypertension Qualified Code(s): I10 - Essential (primary) hypertension Current visit: No Status: Chronic Blood pressures are running a bit high at present. We will monitor these. Likely this is due to his pain. (5) Paroxysmal atrial fibrillation Current visit: Yes Status: Chronic DVT Prophylaxis: SCD's Resuscitation Status: Full Code - Course Hospital Course: Jeb Marte MD: 06/18/17 11:04 Sodium upon repeat has normalized. Hemoglobin stable although low. Pain is an issue and he would like to use some Aspercreme. 06/19/17 10:29 He is cooperative and progressing with therapy. Repeat sodium continues to be normal. Hemoglobin stable. Continued pain in left knee noted. - Interventions to Obtain Goals PT Treatment Plan: Balance/Proprioception, Functional Activities, Gait Training , Patient/Family Education, Therapeutic Exercise OT Treatment Plan: ADL (Basic Care), Balance Training, IADL, Ther. Exercise for ADL, UE Functional Training Goals Progress/Modifications: Time spent with patient and on floor reviewing data and documentin min Barriers to dismissal: Pain, endurance Medical decision-making: I have reviewed his iron studies. We will have anemia of chronic disease. However I anticipate he also has superimposed acute blood loss anemia in view of the recent surgery. Repeat hemoglobin is stable. His sodium remains stable and as such we will liberalize his fluid intake, discontinuing the fluid restriction. We will continue to monitor his blood pressures although they are running a bit high.
--- NOTE | 2017-06-19 11:38 | IRU Plan of Care ---
U Overall Plan of Care - Date Date: 06/19/17 - Patient Impairments (1) Status post total knee replacement, left Code(s): Z96.652 - Presence of left artificial knee joint Status: Acute Classification: Present on IRF Admission, IRF Tx That Should Address Diagnosis, Diagnosis Requiring Medical Follow Up (2) Acute blood loss anemia Code(s): D62 - Acute posthemorrhagic anemia Status: Acute Classification: Present on IRF Admission, IRF Tx That Should Address Diagnosis, Diagnosis Requiring Medical Follow Up (3) Hypertension Qualifiers: Hypertension type: essential hypertension Qualified Code(s): I10 - Essential (primary) hypertension Code(s): I10 - Essential (primary) hypertension Status: Chronic Classification: Present on IRF Admission, IRF Tx That Should Address Diagnosis, Diagnosis Requiring Medical Follow Up - Relevant Changes Relevant Changes: No Reviewed: I have reviewed the patient's information and concur with the finding and results of the pre-admission screen. Certification: I certify the patient for rehabilitation. - Medical Prognosis Medical Prognosis: Good Vital Signs: Last Vital Signs Temp 97.7 F 06/19/17 08:00 Pulse 82 06/19/17 08:48 Resp 16 06/19/17 08:00 BP 156/71 H 06/19/17 08:00 Pulse Ox 95 06/19/17 08:00 - Anticipated Interventions Anticipated Interventions: The patient requires inpatient IRF care for PT, OT, and/or ST for residuals remaining from left knee replacement resulting in muscular weakness and strength deficits. An individualized overall plan of care has been developed after careful review of the patient's preadmission screening, post admission physician evaluation and assessments of all therapy disciplines and/or other pertinent clinicians involved in treating the patient. This indicates medical necessity and rehabilitation necessity have been established through a thorough review of all available medical information. ROM Deficit: Left Lower Extremity Strength Deficits: Left Lower Extremity - Current Functional Status Failed Alternative Therapy: Arrived from Acute Care Patient Requires: The patient requires oversight by rehabilitation physician to manage their rehabilitation treatment plan and multidisciplinary approach to care that can only be provided in an IRF and requires a multidisciplinary approach to care, provided by professional PTs, OTs, rehabilitation nurses, and may require STs, dieticians, and RTS. This is not available in lesser levels of care. Physical Therapy Minutes: 90 Occupational Therapy Minutes: 90 Therapy: The patient is to receive therapy at least 5 days a week. - Anticipated LOS/Outcomes Anticipated Functional Outcome: Expected functional improvements include: -- Modified independant to independant ambulation with or without assistive device -- Modified independant to independant ADL's with or without assistive device -- Return to pre-morbid level of mobility -- Maximize level of mobility and ADL's to decrease burden on any caregiver involved with this patient's care Anticipated Length of Stay (days): 7 Anticipated DC Destination: Home, Self Care, Home Health Service Home Safety Plan: The patient will be provided with the development of a Home Safety Plan for return to a home or home-like environment and and to ensure safety post discharge. - Plan to Avoid Complications Barriers to Attaining Goals: Weakness, Balance, Endurance, Pain Control Plan to Avoid Complications: The patient cannot receive this care in a lesser intensive setting such as Half-Way or Outpatient Therapy due to the patient requiring the following : Close monitoring of hemoglobin in view of acute blood loss anemia, intensive pain management due to severe pain, monitoring of blood pressures in view of severe pain. .
[2017-06-19] MEDS: TAMSULOSIN 0.4 MG CAPSULE PO SCH (22:47)
[2017-06-19] MEDS: ATORVASTATIN 40 MG TABLET PO SCH (22:47)
[2017-06-20] MEDS: PROPAFENONE 150 MG TABLET PO SCH ×3 (01:24→17:57)
[2017-06-20] MEDS: ACETAMINOPHEN 325 MG TABLET PO PRN ×4 (01:24→21:31)
[2017-06-20] MEDS: TRAMADOL 50 MG TABLET PO PRN ×2 (06:39→13:53)
[2017-06-20] MEDS: PANTOPRAZOLE 40 MG TABLET PO SCH ×2 (06:39→18:00)
[2017-06-20] MEDS: CARVEDILOL 3.125 MG TABLET PO SCH ×2 (08:33→17:58)
[2017-06-20] MEDS: MAGNESIUM OXIDE 400 MG TABLET PO SCH (08:34)
[2017-06-20] MEDS: APIXABAN 5 MG TABLET PO SCH ×2 (08:34→21:30)
[2017-06-20] MEDS: OMEGA-3 ACID ESTERS 1 GM CAPSULE PO SCH (08:34)
[2017-06-20] MEDS: GLUCOSAMINE/CHONDROITIN 500 MG/400 MG CAPSULE PO SCH (08:34)
[2017-06-20] MEDS: ASPIRIN *EC* 81 MG TABLET PO SCH ×2 (08:35→21:30)
[2017-06-20] MEDS: DIGOXIN 250 MCG TABLET PO SCH (08:35)
[2017-06-20] MEDS: TROLAMINE SALICYLATE 10% TOP PRN ×2 (09:06→13:54)
--- NOTE | 2017-06-20 09:52 | IRU Progress Note ---
- Subjective/Serverity of Illness Mr. Pearce states that he continues to have pain mainly in the lateral distal left thigh. However it is improving. If he is at rest it does not bother him. It bothers him only if he bears weight in the left leg. Otherwise he denies any chest pain or shortness of breath. Has an occasional to rare cough. His previously noted hyponatremia is resolved. His acute blood loss anemia is stable to improved with current hemoglobin 8.9 g percent. Exam Vital Signs: Temperature 97.6 F 06/20/17 09:31 Pulse Rate 78 06/20/17 09:31 Respiratory Rate 14 06/20/17 09:31 Blood Pressure 106/69 06/20/17 09:31 Pulse Oximetry 97 06/20/17 09:31 Height/Weight/BMI: Height 1.7 m Weight 72.3 kg Body Mass Index 25.6 Comments: The patient is awake, alert and oriented and in no acute distress. Pupils are equal. The neck is supple. Chest: Clear to auscultation bilaterally. Cor: RR with no gallop nor click. His murmur is variable. Seems loudest when he is supine. When sitting, I do not hear it as well. Abd: soft with normo-active bowel sounds. There are no masses, no tenderness and no guarding. Extremities: 1+ edema left lower extremity. IRU A/P (1) Status post total knee replacement, left Current visit: Yes Status: Acute Pain management appears to be improved. Normally he is taking Tylenol he states. Will start Aspercreme today which his brought in. (2) Acute blood loss anemia Current visit: Yes Status: Acute Repeat hematoma stable at 8.9 g percent. (3) Hypertension Qualifiers: Hypertension type: essential hypertension Qualified Code(s): I10 - Essential (primary) hypertension Current visit: No Status: Chronic Most of his blood pressures are adequately controlled in the 125 range. Occasionally does have an elevated systolic value likely related to pain. DVT Prophylaxis: SCD's Resuscitation Status: Full Code - Course Hospital Course: Jeb Marte MD: 06/18/17 11:04 Sodium upon repeat has normalized. Hemoglobin stable although low. Pain is an issue and he would like to use some Aspercreme. 06/19/17 10:29 He is cooperative and progressing with therapy. Repeat sodium continues to be normal. Hemoglobin stable. Continued pain in left knee noted. 06/20/17 09:53 Pain management has been difficult. However he states the pain is starting to subside a bit. Hemoglobin is stable at 8.9 g percent. He feels that he will be stable to return home tomorrow. - Interventions to Obtain Goals PT Treatment Plan: Balance/Proprioception, Functional Activities, Gait Training , Patient/Family Education, Therapeutic Exercise OT Treatment Plan: ADL (Basic Care), Balance Training, IADL, Ther. Exercise for ADL, UE Functional Training Goals Progress/Modifications: Time spent with patient and on floor reviewing data and documentin min Barriers to dismissal: pain in the left knee, endurance Medical decision-making: I have reassessed the knee. He continues to have pain in the left distal lateral thigh area primarily. Palpation of this area shows a small bruise in the area which may be a factor related to his Eliquis. However he is able to ambulate and seems to be improving. He reports pain management is improved. He denies any shortness of breath or chest pain. It is my assessment that he is stable to be dismissed tomorrow. He will pursue outpatient physical therapy.
--- NOTE | 2017-06-20 13:03 | IRU Team Meeting ---
IRU Team Meeting - Nursing Bladder Assistive Devices Utilized:: Medication, Urinal Bladder Management Level of Assist: Modified Independent Bladder Frequency of Accidents: 1 accident in past 7 days Bowel Assistive Devices Utilized:: Medication Bowel Management Level of Assist: Modified Independent Bowel Frequency of Accidents: No accidents Vital Signs: Vital Signs - 24 hr 06/19/17 16:00 06/19/17 17:06 06/19/17 20:36 Temperature 98.1 F 97.3 F Pulse Rate 68 68 83 Respiratory Rate 20 24 Blood Pressure 128/71 129/70 Pulse Oximetry 96 100 06/20/17 01:24 06/20/17 08:34 06/20/17 08:35 Temperature Pulse Rate 90 78 78 Respiratory Rate Blood Pressure Pulse Oximetry 06/20/17 09:31 Temperature 97.6 F Pulse Rate 78 Respiratory Rate 14 Blood Pressure 106/69 Pulse Oximetry 97 Current Medications: Acetaminophen (Tylenol) 650 mg PO Q4H PRN PRN Reason: Pain Last Admin: 06/20/17 08:33 Dose: 650 mg Hydrocodone Bitart/Acetaminophen ([place] 5/325) 1 - 2 tab PO Q4H PRN PRN Reason: Pain Al Hydroxide/Mg Hydroxide (Maalox Plus) 30 ml PO Q6H PRN PRN Reason: Indigestion Apixaban (Eliquis) 5 mg PO BID [facility] Last Admin: 06/20/17 08:34 Dose: 5 mg Aspirin (Ecotrin) 81 mg PO BID [facility] Last Admin: 06/20/17 08:35 Dose: 81 mg Atorvastatin Calcium (Lipitor) 40 mg PO HS [facility] Last Admin: 06/19/17 22:47 Dose: 40 mg Carvedilol (Coreg) 3.125 mg PO BIDWM [facility] Last Admin: 06/20/17 08:33 Dose: 3.125 mg Digoxin (Lanoxin) 250 mcg PO DAILY [facility] Last Admin: 06/20/17 08:35 Dose: 250 mcg Glucosamine/Chondroitin (Osteo Bi-Flex) 1 cap PO DAILY [facility] Last Admin: 06/20/17 08:34 Dose: 1 cap Magnesium Oxide (Magox) 400 mg PO DAILY [facility] Last Admin: 06/20/17 08:34 Dose: 400 mg Nitroglycerin (Nitrostat) 0.4 mg SL Q5M PRN PRN Reason: Chest pain Jafmy-8-Vzoc Ethyl Esters (Lovaza) 1 gm PO DAILY [facility] Last Admin: 06/20/17 08:34 Dose: 1 gm Pantoprazole Sodium (Protonix Tab) 40 mg PO ACBID [facility] Last Admin: 06/20/17 06:39 Dose: 40 mg Propafenone HCl (Rythmol) 225 mg PO Q8H [facility] Last Admin: 06/20/17 08:34 Dose: 225 mg Tamsulosin HCl (Flomax) 0.4 mg PO HS [facility] Last Admin: 06/19/17 22:47 Dose: 0.4 mg Tramadol HCl (Ultram) 50 mg PO Q4HR PRN PRN Reason: Pain Last Admin: 06/20/17 06:39 Dose: 50 mg Trolamine Salicylate (Aspercreme) 1 applic TOP QID PRN PRN Reason: Pain Last Admin: 06/20/17 09:06 Dose: 1 applic Current Medical Issues: Severe pain in the knee, acute blood loss anemia, hyponatremia (resolved) Comments: I certify that I personally led the interdisciplinary team meeting and agree with comments, barriers and goals indicated. Team meeting was held in the patient's room with the patient and the following family members present: patient alone Mr. Pearce continues to complain of significant pain in the left knee although perhaps it is improved. He is starting Aspercreme this morning. Knee wound looks fine without evidence of infection nor inflammation. His appetite is good. He is having bowel movements. He does have acute blood loss anemia although the hemoglobin is stable at 8.9. His sodium is normal now at 135. - Physical Therapy Bed, Chair, Wheelchair Transfer Assist: Modified Independent Ambulation Ability: Modified Independent Ambulation Distance: 833 Stair Climbing Ability: Modified Independent Number of Steps Climbed: 12 Car Transfer Ability: Stand By Assist/Supervision Comments: Patient is making excellent progress. Goals are to improve flexion of left knee to 90 and even further as an outpatient. It is planned that he will attend outpatient physical therapy for further work on the knee. He has done well however. - Occupational Therapy Eating Ability: Independent Grooming Ability: Independent Bathing Ability: Modified Independent Upper Body Dressing Ability: Independent Lower Body Dressing Ability: Modified Independent Tub Transfer Assist: Patient Refuses Toileting Assist: Modified Independent Toilet Transfer Assist: Modified Independent Comments: The patient has met his goals for ADLs. He has done well. - Goals Physical Therapy Goals: 06/20/17 Goals: 1.) Discharge Planning. 2.) Knee range of motion to 90 deg flex, 0 deg ext Occupational Therapy Goals: 06/20/17 Goals: 1.) D/C planning - Barriers to Discharge Barriers to Attaining Goals: Pain Control - Care Plan Anticipated Length of Stay (days): 1 Anticipated DC Destination: Home, Self Care I have led this team conference and agree with the plan. Interventions/Goals: It is anticipated the patient will return to his home tomorrow with his . He will follow-up with outpatient physical therapy.
--- NOTE | 2017-06-20 13:08 | Discharge Summary ---
Discharge Information Date of admission: 06/16/17 13:50 Anticipated date of discharge: 06/21/17 Attending Physician: Jeb Marte MD Primary care physician: Cr Meredith MD Consults: 06/16/17 15:57 Physician Consult [CONS] Routine Consulting Provider: Mary Thao Reason For Exam: Medical Management Ordering Provider has Notified Associate Professor Computer Science: No - Discharge Diagnosis (1) Status post total knee replacement, left Status: Acute (2) Acute blood loss anemia Status: Acute (3) Hypertension Status: Chronic 1. Osteoarthritis of left knee, status post left total knee replacement 2. Acute blood loss anemia 3. Hyponatremia-resolved - Laboratory Labs: 06/19/17 04:14 06/19/17 04:14 History of Present Illness HPI: 06/20/17 13:05 Mr. Pearce has struggled with bilateral primary osteoarthritis of the knees. He has a history of previous right total knee replacement while in [place]. At this time he underwent left total knee replacement in [place] on 06/11/2017. He did experience acute blood loss anemia (initial hemoglobin recorded at 10.8 in [place] with lowest hemoglobin recorded 8.9). In addition, he had significant hyponatremia with lowest sodium recorded 126 on the day of transfer. He was transferred to [facility] inpatient rehabilitation unit on 2016 for further therapy. Hospital Course This is a general summary of the patient's hospital course. For more details refer to the complete medical record. Mr. Pearce was admitted to the inpatient rehabilitation unit for a multidisciplinary approach to his rehabilitation after left total knee surgery. Medically he had a history of acute blood loss anemia of significance as well as hyponatremia. On the day of transfer (06/16/2017) sodium was recorded at 126 in [place]. However when he arrived, the sodium had normalized. We did monitor his sodium and it remained within the normal range being 135 prior to dismissal. In addition we did monitor his hemoglobin which was 8.9 prior to dismissal. He had no further symptoms of acute blood loss and his blood pressures were stable. He did have significant pain in the left knee. Examination of the wound failed to reveal any evidence of infection nor inflammation. He is on Eliquis as well. He declined the use of hydrocodone indicating that made him more confused in the past. For this reason he took tramadol and wished to go home on that. He was seen by occupational therapy. Eating was independent upon admission and dismissal. Grooming ability was standby assistance initially and independent at the time of dismissal. Bathing was initially standby assistance and ultimately modified independent. Upper body dressing was modified independent initially and independent ultimately. Lower body dressing was standby assistance initially and modified independent ultimately. Toileting assistance with standby assistance initially and modified independent subsequently. Toilet transfer assistance with standby initially and modified independent at the conclusion of therapy. Bed/chair/wheelchair transfers were performed with standby assistance. With regard to physical therapy, bed/chair/wheelchair transfers improved from contact-guard assistance to standby assistance. Toilet assistance with standby assistance. Car transfers were performed with standby assistance. Ambulation ability improved from maximal assistance at 126 feet with a front-wheeled walker to standby assistance at 833 feet with a front-wheeled walker. Stairs initially were felt to be unsafe but ultimately was able to climb 12 steps with modified independent functioning. His pain was a limiting factor in his progress. He did not wish to use hydrocodone and instead used tramadol primarily. It is anticipated he will be dismissed on 06/21/2017 to follow-up with his orthopedist in [place] and his personal physician, Dr. Cr Meredith. Hospital course: Assessment: S/P left knee replacement, 06/11/17, Dr. Eastman. Post-op, blood loss anemia, acute, present on admission. Hyponatremia, prior to arrival, resolved on admission. CAD with history of OH. Paroxysmal atrial fibrillation. Hypertension. Hypercholesterolemia. Aortic stenosis with aortic valve area estimated at 1.1cm. BPH. GERD. Constipation. Osteoarthritis. Plan - 06/17/17 (Consult). Agree with admission to IRU for continued therapies to improve strength and functional abilities. Continue to provide safe and supportive environment. Monitor surgical incision to left knee for signs of infection; keep bandage clean, dry and intact. Blood loss anemia noted on admission with hemoglobin at 9.0. Monitor closely. History of blood transfusion x 2 units following prior knee replacement in spring 2016. Currently patient is asymptomatic. Will recheck CBC on 06/19/17 and continue to monitor periodically. Hyponatremia following surgery, resolved prior to admission. Current sodium at 136. Maintain 1500cc fluid restriction and monitor electrolytes closely. Concern for SIADH given patient's hyponatremia and increased pain. Will obtain UA and UA sodium for further evaluation. Continue on home medications. Monitor blood pressure closely. Monitor closely for signs of urinary retention given history of BPH. Encourage incentive spirometry for pulmonary toileting. SCDs for DVT prophylaxis. Appreciate the opportunity to participate in Mr. Pearce's care. Upon discharge , his care will be returned to his PCP , Dr. Meredith. Discharge Plan - Med Rec/Dispo Additional Instructions: Physical Therapy appointment 06/24/17 at 1pm at [facility] [address] [place] [address] Dr. [facility] In [phone]. Prescriptions: New Trolamine Salicylate 10% Cream [Aspercreme] 1 applic TOP QID PRN tube PRN Reason: Pain Continue Pantoprazole Sodium [Protonix] 1 tab PO ACBID [place]-3 Fatty Acids [[place]-3] 1,000 mg PO DAILY Magnesium Oxide [Magnesium] 1 tab PO DAILY Glucosamine/Chondroitin [Osteo Bi-Flex] 1 cap PO DAILY Digoxin 2 tab PO DAILY Acetaminophen 650 mg PO Q4H Mag-Al + Sim Oral Liq [Maalox Plus] 30 ml PO Q6H PRN PRN Reason: Indigestion Tamsulosin [Flomax] 0.4 mg PO HS Propafenone [Rythmol] 1.5 tab PO Q8H Nitroglycerin 0.4 mg SL Q5M PRN PRN Reason: Chest Pain Aspirin [Aspirin EC] 81 mg PO BID Apixaban [Eliquis] 5 mg PO BID Carvedilol [Coreg] 1 tab PO BIDWM Atorvastatin [Lipitor] 1 tab PO HS Tramadol [Ultram] 50 mg PO Q4HR PRN #30 tab PRN Reason: Pain Discontinued Hydrocodone/Acetaminophen [Hydrocodon-Acetaminophen 5-325] 1 tab PO Q4H PRN PRN Reason: Pain - Disposition 01 Discharged Home, Self-Care - Dismissal Complete Discharge Instructions are:: Complete
[2017-06-20] MEDS: ATORVASTATIN 40 MG TABLET PO SCH (21:31)
[2017-06-20] MEDS: TAMSULOSIN 0.4 MG CAPSULE PO SCH (21:31)
[2017-06-21] MEDS: PROPAFENONE 150 MG TABLET PO SCH ×2 (00:39→09:00)
[2017-06-21] MEDS: PANTOPRAZOLE 40 MG TABLET PO SCH (06:48)
[2017-06-21] MEDS: ACETAMINOPHEN 325 MG TABLET PO PRN ×2 (07:35→11:34)
[2017-06-21 08:02] VITALS: BP 130/63; RESP 18; TEMP 98.1; O2SAT 95
[2017-06-21] MEDS: ASPIRIN *EC* 81 MG TABLET PO SCH (09:03)
[2017-06-21] MEDS: GLUCOSAMINE/CHONDROITIN 500 MG/400 MG CAPSULE PO SCH (09:03)
[2017-06-21] MEDS: DIGOXIN 250 MCG TABLET PO SCH (09:03)
[2017-06-21] MEDS: APIXABAN 5 MG TABLET PO SCH (09:03)
[2017-06-21] MEDS: OMEGA-3 ACID ESTERS 1 GM CAPSULE PO SCH (09:03)
[2017-06-21] MEDS: MAGNESIUM OXIDE 400 MG TABLET PO SCH (09:04)
[2017-06-21] MEDS: CARVEDILOL 3.125 MG TABLET PO SCH (09:04)
[2017-06-21 09:05] VITALS: PULSE 75
[2017-06-21] MEDS: TROLAMINE SALICYLATE 10% TOP PRN (11:28)
== END 2017-06-21 13:08 | disposition home or self-care (01) | DRG 560 ==
PROVIDERS: ADMIT Internal Medicine; ATTEND Internal Medicine